=== PATIENT | male | born 1980 | race Caucasian/White ===

== ENCOUNTER 2021-01-08 22:23 | Inpatient (IN) ==
[2021-01-09] MEDS ORDERED: SODIUM CHLORIDE 0.9% 1000ML 1,000 ML IV SCH (00:30)
[2021-01-09 00:39] LABS: Basophils # (auto) 0.02 K/uL (0-0.2); Basophils % (auto) 0.3 %; Eosinophils % (auto) 1.3 %; Hematocrit (blood only) 42.2 % (42-52); Hemoglobin 14.3 g/dL (14.0-18.0); Immature Granulocytes # (auto) 0.02 K/uL (0.00-0.02); Immature Granulocytes % (auto) 0.3 %; Lymphocytes # (auto) 0.89 K/uL (1.2-3.4); Lymphocytes % (auto) 11.2 %; Mean Corpuscular Hemoglobin 30.2 pg (25-34); Mean Corpuscular Hgb Conc 33.9 g/dL (32-36); Mean Corpuscular Volume 89.2 fL (80-100); Mean Platelet Volume 11.4 fL (7.4-10.4); Monocytes # (auto) 0.78 K/uL (0.11-0.59); Monocytes % (auto) 9.8 %; Neutrophils # (auto) 6.13 K/uL (1.4-6.5); Neutrophils % (auto) 77.1 %; Platelet Count 241 K/uL (130-400); RDW Coefficient of Variation 13.6 % (11.5-14.5); RDW Standard Deviation 44.6 fL (36.4-46.3); Red Blood Count 4.73 M/uL (4.7-6.1); White Blood Count 7.94 K/uL (4.8-10.8)
[2021-01-09 00:47] LABS: Albumin Level 4.3 gm/dl (3.4-5.0); BUN Creatinine Ratio 16.3 (10-20); Calcium 9.4 mg/dl (8.5-10.1); Creatinine Clr Calc Pharmacy 64.3 ml/min; Est GFR (African American) 58.5 ml/min; Est GFR (Non-African American) 50.4 ml/min; Potassium 3.9 mmol/L (3.5-5.1)
[2021-01-09] MEDS ORDERED: RAPID SEQUENCE INDUCTION BAG ONE (00:49)
[2021-01-09 00:50] LABS: Albumin Globulin Ratio 1.3 (0.9-2); Bilirubin,Total 0.8 mg/dl (0.2-1); Globulin 3.2 gm/dl (2.5-4.0); Total Protein 7.5 gm/dl (6.4-8.2)
[2021-01-09 00:54] LABS: Acetaminophen < 2 ug/ml (10-30); Salicylate < 1.7 mg/dl (2.8-20)
[2021-01-09] MEDS ORDERED: PROPOFOL IV EMULSION 10 MG/ML 100 ML VIAL IV ONE (01:05)
[2021-01-09] MEDS: propofoL 1,000 MG/100 ML VIAL IV SCH ×3 (01:15→16:07)
--- NOTE | 2021-01-09 01:20 | XRay Report ---
SINGLE VIEW CHEST CLINICAL HISTORY: Hypoxia. FINDINGS: An AP, portable, supine chest radiograph is obtained. No prior studies are available for co mparison at the time of dictation. The left costophrenic angle was excluded. The cardiomediastinal si lhouette is unremarkable. There is platelike atelectasis in the right midlung with mild elevation of the right hemidiaphragm. No airspace consolidation typical for pneumonia or large pleural effusion is identified. No pneumothorax is seen. There is chronic appearing left anterolateral 5th rib fracture. IMPRESSION: No acute cardiopulmonary abnormality. ACT 112: Negative or not required by law. Electronically signed by: Martin Maurer M.D. 01/09/2021 1:18 AM
--- NOTE | 2021-01-09 01:21 | XRay Report ---
SINGLE VIEW CHEST CLINICAL HISTORY: Status post intubation. FINDINGS: An AP, portable, supine chest radiograph is compared to study performed earlier the same da y 01/09/2021. The examination is degraded by portable technique and patient rotation. An endotrachea l tube has been placed. The tip projects just above the misael. The cardiomediastinal silhouette is u nremarkable. Plate like atelectasis is again seen in the right midlung. This is modestly improved fro m previous. No airspace consolidation typical for pneumonia or large pleural effusion is identified. No pneumothorax is seen. The bony thorax is grossly intact. IMPRESSION: 1. An endotracheal tube has been placed as above. 2. Platelike atelectasis in the right midlung has improved from previous. ACT 112: Negative or not required by law. Electronically signed by: Martin Maurer M.D. 01/09/2021 1:20 AM
[2021-01-09] MEDS ORDERED: MIDAZOLAM HCL 1 MG/ML 2ML VIAL ONE (01:24)
--- NOTE | 2021-01-09 01:24 | XRay Report ---
SINGLE VIEW CHEST CLINICAL HISTORY: Endotracheal tube repositioning. FINDINGS: An AP, portable, supine chest radiograph is compared to studies performed earlier the same day 01/09/2021. The examination is degraded by portable technique and patient rotation. An endotrach eal tube has been repositioned. The tip now projects approximately 2.5 cm above the misael. The cardi omediastinal silhouette is unremarkable. Platelike atelectasis is again seen in the right midlung. No airspace consolidation typical for pneumonia or large pleural effusion is identified. No pneumothora x is seen. There is a healed left-sided rib fracture. IMPRESSION: 1. An endotracheal tube has been repositioned as detailed above. 2. No airspace consolidation typical for pneumonia or large pleural effusion is identified. ACT 112: Negative or not required by law. Electronically signed by: Martin Maurer M.D. 01/09/2021 1:22 AM
[2021-01-09] MEDS ORDERED: STAT IV Infusion **Titration per Protocol STA ×3 (01:29→06:03)
[2021-01-09] MEDS ORDERED: MIDAZOLAM HCL 1 MG/ML 2ML VIAL IV STA ×7 (01:35→08:42)
[2021-01-09] MEDS ORDERED: cefTRIAXone SODIUM 1,000 MG/50 ML BAG IV STA (01:39)
[2021-01-09] MEDS ORDERED: metroNIDAZOLE 500 MG/100 ML BAG IV STA (01:39)
[2021-01-09] MEDS: PROPOFOL BOLUS FROM BAG IV PRN ×4 (01:45→09:30)
[2021-01-09 02:09] LABS: iSTAT Arterial Blood Gas HCO3 24 meg/L (19-24); iSTAT Arterial Blood Gas pCO2 52 mmHg (35-46); iSTAT Arterial Blood Gas pH 7.28 (7.35-7.45); iSTAT Arterial Blood Gas pO2 > 420 mmHg (80-95); iSTAT Carbon Dioxide 26 mmol/L (24-31); iSTAT Hematocrit 36 % (42-52); iSTAT Hemoglobin 12.2 g/dl (14.0-18.0); iSTAT Potassium 3.8 mmol/L (3.3-5.0); iSTAT Sodium 145 mmol/L (135-144)
[2021-01-09] MEDS ORDERED: SODIUM CHLORIDE 0.9% 1000ML 500 ML IV ONE (02:28)
[2021-01-09] MEDS ORDERED: fentaNYL citrate 100 MCG/2 ML VIAL IV STA ×4 (02:28→05:16)
[2021-01-09] MEDS ORDERED: SODIUM CHLORIDE 0.9% 500 ML IV SCH (02:30)
[2021-01-09 03:35] LABS: Appearance Urine Clear (Clear); Bacteria Urine Automated Negative (Negative); Blood Urine Negative (Negative); Color Urine Dark Yellow; Epithelial Cell Urine Auto 20-30 /lpf (0-5); Glucose Urine UA Negative (Negative); Ketones Urine 1+ (Negative); Leukocyte Esterase Urine Negative (Negative); Nitrite Urine Negative (Negative); Protein Urine Trace (Negative); RBC Urine Automated 0-4 /hpf (0-4); Specific Gravity Urine 1.035 (1.000-1.030); Urobilinogen Urine Negative (Negative)
[2021-01-09 03:40] LABS: Bilirubin Urine 1+ (Negative)
[2021-01-09 03:51] LABS: Cast Urine Automated >30 /lpf (0-5)
--- NOTE | 2021-01-09 03:52 | History & Physical Report ---
Date of Service January 09, 2021 Assessment & Plan (1) Respiratory failure: Plan: Multifactorial : Oversedation at psychiatric facility secondary to combativeness Aspiration pneumonitis ARF secondary to illness anxiety/mood disorder, suboptimal past tobacco abuse ICU Vent management Clindamycin for aspiration pneumonitis Monitor creatinine response to IVF, renal ultrasound if improvement in kidney function DVT prophylaxis Heparin subcu GI prophylaxis Famotidine while on mechanical ventilation Full code Patient's mother requesting updates from providers. Ms. Ethan Angel, contact #[phone]. Total critical care time was 40 minutes. Text document was generated using [employer] voice recognition software. It may contain grammatical or spelling errors. Kindly contact undersigned for clarification of any documentation item in question. History of Present Illness Chief Complaint: Unresponsiveness as per records Primary Care Provider: Zev Appiah PA-C History obtained from ER provider, family, and records. Unable to obtain history from patient secondary to obtunded state. Medical history significant for anxiety/mood disorder, tremors, past tobacco abuse. Last confinement [facility] behavioral health unit for depression. Patient seen at [facility] ER on 3 occasions this week. First 2 visits (01/01 and 01/07) for anxiety, panic attacks, inability to sleep. Third visit at [facility] yesterday for depression and hallucinations. Patient admits to inhaling illicit substances (duster huffing). Patient not suicidal as per ER provider documentation. Patient subsequently admitted at the [facility]. Outpatient psychiatrist (Dr. Jeffery) recommended switching patient's Abilify to Seroquel inpatient as per records. Patient agitated and combative upon arriving at [facility] as per records. Subsequently given Ativan and Thorazine by medical staff. Patient later noted to have snoring respiration and decreased responsiveness. Subsequent emesis noted. Patient brought to the ER for evaluation. Patient subsequently intubated for combativeness and respiratory distress. Patient noted to have brown orotracheal secretions as per ED staff. IV Ceftriaxone and Flagyl given at the ER. Medical History as above Surgical History : None Family History : Heart disease Personal/Social history : Past tobacco abuse, no EtOH intake Allergies Allergy/AdvReac Type Severity Reaction Status Date / Time Penicillins Allergy Unknown Verified 01/08/21 23:10 Home Medications Medication Instructions Recorded Confirmed Type aripiprazole 10 mg tablet 10 mg PO DAILY 01/08/21 01/08/21 History benztropine 2 mg tablet 2 mg PO DAILY 01/08/21 01/08/21 History hydroxyzine HCl 50 mg tablet 50 mg PO UD 01/08/21 01/08/21 History sildenafil (pulm.hypertension) 20 40 mg PO UD 01/08/21 01/08/21 History mg tablet trazodone 50 mg tablet 50 mg PO UD 01/08/21 01/08/21 History venlafaxine 150 mg tablet,extended 150 mg PO UD 01/08/21 01/08/21 History release 24 hr Past Med/Surg History Social History Smoking Status: Unknown if ever smoked Preferred Language: Sudanese Appointment Coordinator Required: No Current Living Situation Comment: Unable pt intubated and sedated Feels Safe at Home: Yes Review of Systems Review of Systems: Could not be reliably obtained Physical Exam Physical Exam: GENERAL: Sedated, intubated SKIN: Normal color, warm HEENT: [place] palpebral conjunctivae, no ptosis, dry buccal mucosa, ET in place NECK : Supple, no tenderness CHEST : Decreased breath sounds, occasional expiratory wheezes, no tenderness HEART : RRR, no obvious murmurs ABDOMEN: Some distention, nontender EXTREMITIES : No LE swelling/tenderness, no other conspicuous deformities noted NEUROLOGIC : Sedated, no facial asymmetry, gait and stance not assessed Results & Data Results & Data ([facility]) Vital Signs (Past 12 Hours) Vital Signs Temp Pulse Pulse Resp BP BP Pulse Ox 01/09/21 03:15 103 H 97/58 L 96 01/09/21 03:00 97 H 102/64 96 01/09/21 02:45 113 H 20 123/81 97 01/09/21 02:39 99 H 19 98 01/09/21 02:34 99 H 96 01/09/21 02:00 99 H 112/72 100 01/09/21 01:55 20 01/09/21 01:30 112 H 114/72 100 01/09/21 01:05 116 H 13 99 01/09/21 01:00 126 H 93 01/09/21 00:30 138 H 26 H 134/81 90 01/09/21 00:00 133 H 25 H 106/83 91 01/08/21 23:30 126 H 21 114/80 93 01/08/21 23:00 125 H 23 121/83 95 01/08/21 22:35 37.2 C 109 H 116 H 20 91/50 L 91/50 L 94 01/08/21 22:31 107 H 18 91/50 L 95 Laboratory Results Laboratory Results WBC 7.94 K/uL (4.8-10.8) 01/08/21 22:20 RBC 4.73 M/uL (4.7-6.1) 01/08/21 22:20 Hgb 14.3 g/dL (14.0-18.0) 01/08/21 22:20 POC Hgb 12.2 g/dl (14.0-18.0) L 01/09/21 01:54 Hct 42.2 % (42-52) 01/08/21 22:20 POC Hct 36 % (42-52) L 01/09/21 01:54 MCV 89.2 fL (80-100) 01/08/21 22:20 MCH 30.2 pg (25-34) 01/08/21 22:20 MCHC 33.9 g/dL (32-36) 01/08/21 22:20 RDW Std Deviation 44.6 fL (36.4-46.3) 01/08/21 22:20 RDW Coeff of Bradford 13.6 % (11.5-14.5) 01/08/21 22:20 Plt Count 241 K/uL (130-400) 01/08/21 22:20 MPV 11.4 fL (7.4-10.4) H 01/08/21 22:20 Immature Gran % (Auto) 0.3 % 01/08/21 22:20 Neut % (Auto) 77.1 % 01/08/21 22:20 Lymph % (Auto) 11.2 % 01/08/21 22:20 Marathon % (Auto) 9.8 % 01/08/21 22:20 Eos % (Auto) 1.3 % 01/08/21 22:20 Baso % (Auto) 0.3 % 01/08/21 22:20 Neut # (Auto) 6.13 K/uL (1.4-6.5) 01/08/21 22:20 Lymph # (Auto) 0.89 K/uL (1.2-3.4) L 01/08/21 22:20 Marathon # (Auto) 0.78 K/uL (0.11-0.59) H 01/08/21 22:20 Eos # (Auto) 0.10 K/uL (0-0.5) 01/08/21 22:20 Baso # (Auto) 0.02 K/uL (0-0.2) 01/08/21 22:20 Immature Gran # (Auto) 0.02 K/uL (0.00-0.02) 01/08/21 22:20 POC pH 7.28 (7.35-7.45) L 01/09/21 01:54 POC pCO2 52 mmHg (35-46) H 01/09/21 01:54 POC pO2 > 420 mmHg (80-95) H 01/09/21 01:54 POC HCO3 24 timbo/L (19-24) 01/09/21 01:54 POC Total CO2 26 mmol/L (24-31) 01/09/21 01:54 POC Base Excess -2.0 timbo/L (-9-1.8) 01/09/21 01:54 POC ABG O2 Sat 100.0 % (90-95) H 01/09/21 01:54 POC Sodium 145 mmol/L (135-144) H 01/09/21 01:54 Sodium 140 mmol/L (136-145) 01/08/21 22:20 POC Potassium 3.8 mmol/L (3.3-5.0) 01/09/21 01:54 Potassium 3.9 mmol/L (3.5-5.1) 01/08/21 22:20 Chloride 111 mmol/L (98-107) H 01/08/21 22:20 Carbon Dioxide 23 mmol/L (21-32) 01/08/21 22:20 Anion Gap 6.0 (3-11) 01/08/21 22:20 BUN 27 mg/dl (7-18) H 01/08/21 22:20 Creatinine 1.66 mg/dl (0.6-1.4) H 01/08/21 22:20 Est Cr Clr Drug Dosing 64.3 ml/min 01/08/21 22:20 Est GFR ( Amer) 58.5 ml/min 01/08/21 22:20 Est GFR (Non-Af Amer) 50.4 ml/min 01/08/21 22:20 BUN/Creatinine Ratio 16.3 (10-20) 01/08/21 22:20 Glucose 102 mg/dl (70-99) H 01/08/21 22:20 Calcium 9.4 mg/dl (8.5-10.1) 01/08/21 22:20 Total Bilirubin 0.8 mg/dl (0.2-1) 01/08/21 22:20 AST 26 U/L (15-37) 01/08/21 22:20 ALT 26 U/L (12-78) 01/08/21 22:20 Alkaline Phosphatase 100 U/L (45-117) 01/08/21 22:20 Total Protein 7.5 gm/dl (6.4-8.2) 01/08/21 22:20 Albumin 4.3 gm/dl (3.4-5.0) 01/08/21 22:20 Globulin 3.2 gm/dl (2.5-4.0) 01/08/21 22:20 Albumin/Globulin Ratio 1.3 (0.9-2) 01/08/21 22:20 Urine Color Dark Yellow 01/09/21 03:11 Urine Appearance Clear (Clear) 01/09/21 03:11 Urine pH 5.0 (4.5-7.5) 01/09/21 03:11 Ur Specific Luckey 1.035 (1.000-1.030) H 01/09/21 03:11 Urine Protein Trace (Negative) H 01/09/21 03:11 Urine Glucose (UA) Negative (Negative) 01/09/21 03:11 Urine Ketones 1+ (Negative) H 01/09/21 03:11 Urine Blood Negative (Negative) 01/09/21 03:11 Urine Nitrite Negative (Negative) 01/09/21 03:11 Urine Bilirubin 1+ (Negative) H 01/09/21 03:11 Urine Urobilinogen Negative (Negative) 01/09/21 03:11 Ur Leukocyte Esterase Negative (Negative) 01/09/21 03:11 Urine WBC (Auto) 1-5 /hpf (0-5) 01/09/21 03:11 Urine RBC (Auto) 0-4 /hpf (0-4) 01/09/21 03:11 U Hyaline Cast (Auto) >30 /lpf (0-5) H 01/09/21 03:11 U Epithel Cells (Auto) 20-30 /lpf (0-5) H 01/09/21 03:11 Urine Bacteria (Auto) Negative (Negative) 01/09/21 03:11 Salicylates < 1.7 mg/dl (2.8-20) L 01/08/21 22:20 Acetaminophen < 2 ug/ml (10-30) L 01/08/21 22:20 Ethyl Alcohol mg/dL < 3.0 mg/dl (0-3) 01/09/21 00:47 COVID-19 Eval Order Covid19 at [facility] 01/09/21 03:11 Impressions Chest X-Ray 01/09/21 01:14 SINGLE VIEW CHEST CLINICAL HISTORY: Endotracheal tube repositioning. FINDINGS: An AP, portable, supine chest radiograph is compared to studies performed earlier the same day 01/09/2021. The examination is degraded by portable technique and patient rotation. An endotracheal tube has been repositioned. The tip now projects approximately 2.5 cm above the misael. The cardiomediastinal silhouette is unremarkable. Platelike atelectasis is again seen in the right midlung. No airspace consolidation typical for pneumonia or large pleural effusion is identified. No pneumothorax is seen. There is a healed left-sided rib fracture. IMPRESSION: 1. An endotracheal tube has been repositioned as detailed above. 2. No airspace consolidation typical for pneumonia or large pleural effusion is identified. ACT 112: Negative or not required by law. Electronically signed by: Martin Maurer M.D. 01/09/2021 1:22 AM Diagnostic Findings EKG as per my interpretation : Rate 115, sinus tachycardia, LAD, LAFB, no ischemia
[2021-01-09] MEDS ORDERED: CLINDAMYCIN 600 MG in DEXTROSE 5% 50 ML IV STA (03:56)
[2021-01-09] MEDS ORDERED: LACTATED RINGER'S 1,000 ML IV STA (03:56)
[2021-01-09] MEDS ORDERED: DEXMEDETOMIDINE HCL 200 MCG in SODIUM CHLORIDE 0.9% 48 ML IV SCH (04:00)
[2021-01-09 04:02] LABS: Amphetamines+Metham, Urine Neg (Neg); Barbiturates, Urine Neg (Neg); Benzodiazepine, Urine Pos (Neg); Cocaine, Urine Neg (Neg); MDMA (Ecstacy), Urine Neg (Neg); Methadone, Urine Neg (Neg); Opiate, Urine Neg (Neg); Phencyclidine, Urine Neg (Neg)
[2021-01-09 04:10] LABS: Magnesium 2.5 mg/dl (1.8-2.4)
[2021-01-09 04:20] LABS: Thyroid Stimulating Hormone 3.77 uIu/ml (0.300-4.500)
--- NOTE | 2021-01-09 04:54 | Critical Care Consultation ---
Date of Consultation January 09, 2021 Assessment & Plan (1) Aspiration into airway: Reason Critically Ill: 40-year-old male presents to the ICU mechanically ventilated for acute hypoxic respiratory failure following what is likely an aspiration event which occurred in inpatient psych. Neuro - Agitation/encephalopathypatient was found to be agitated at the rachel and did receive Ativan and Thorazine -Currently mechanically ventilated and sedated with fentanyl drip, Precedex -Ammonia, BUN, and LFTs within normal limits -UDS thus far only positive for benzos, follow-up final result. EtOH negative. 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 -CT head negative for acute intracranial process -Start thiamine and folic acid daily -Continue Effexor and aripiprazole when appropriate -Consult psych once patient stable Cardiac - Hypotensionlikely sedation related however cannot rule out possible distributive shock following aspiration event -Maintain maps greater than 65 with phenylephrine infusion -Hold antihypertensives Respiratory - Acute hypoxic respiratory failurelikely in the setting of aspiration pneumonitis as patient was witnessed vomiting and suddenly became in respiratory distress -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 Continue with supportive care -Currently mechanically ventilated, AC VC 22/450/10/60 percent, follow-up ABG in a.m. -Sputum culture/BAL pending -See ID below -Continuous end-tidal CO2 and oxygen saturation monitoring -Wean vent as tolerated GI - NG tube to low intermittent suction IV famotidine twice daily RENAL/LYTES - TRAVIS?Unsure of baseline creatinine, currently presents with creatinine 1.6 -Continue with IV fluid resuscitation as patient appears to be hypovolemic -Due to both greater than 65 -Trend BMP -Avoid nephrotoxins renally adjust medications - Foleystrict I's and Os ENDO - No history of diabetes or thyroid disease ICU hyperglycemic protocol TSH within normal limits HEME - H&H stable, monitor routine CBCs ID - Pneumonia?No leukocytosis, pro Augusto negative, lactate negative. Now febrile. Chest x-ray with right middle and lower lobe infiltrates suspicious for aspiration. Suspect this is likely aspiration pneumonitis given history -Blood cultures and sputum culture pending -UA unremarkable for infectious process -Received ceftriaxone and Flagyl in the ED, now started on clindamycin LINES/IV ACCESS - Peripheral IVs DVT PROPHYLAXIS - SCDs, heparin I have personally spent 45 minutes of critical care time in the direct management of this patient. This is a life/limb threatening event. This includes time spent evaluating patient, direct bedside care, chart review, placing orders, interpretation of diagnostic studies, discussion with consultants, patient, and family members, as well as other required patient management activities. This time is exclusive of all separately billable procedures, and teaching time and separate from and in addition to any other critical care service time. Thank you for allowing us to participate in the care of this patient. Please refer to my attending physician's documentation for any further recommendations. (2) Encephalopathy acute: (3) TRAVIS (acute kidney injury): (4) Acute respiratory failure with hypoxia: (5) Anxiety and depression: History of Present Illness History of Present Illness Patient is a 40-year-old male with a past medical history of anxiety/depression is currently on Effexor, Abilify who has recently presented to [facility] multiple times over the past few weeks with increasing complaints of anxiety and depression. 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 He was admitted to the [facility] yesterday and was reported to be pacing the halls and very agitated. He received p.o. Thorazine and Ativan at that time, and vomited. Shortly after he became in respiratory distress and was tr ansferred to the emergency department. In the emergency department patient was noted to be combative and in significant respiratory distress and was emergently intubated. He was taken for CT head Noncon which was negative for acute intracranial findings. UDS pending result, salicylates and acetaminophen negative, EtOH negative. Lactate and procalcitonin unremarkable and no leukocytosis however patient did spike fever on arrival to the ICU. He was also noted to have copious dark secretions from the ET tube. Chest x-ray with possible right middle/lower lobe infiltrate. Patient now presents to the ICU mechanically ventilated for further management at this time. Allergies Allergy/AdvReac Type Severity Reaction Status Date / Time Penicillins Allergy Unknown Verified 01/08/21 23:10 Home Medications Medication Instructions Recorded Confirmed Type aripiprazole 10 mg tablet 10 mg PO DAILY 01/08/21 01/08/21 History benztropine 2 mg tablet 2 mg PO DAILY 01/08/21 01/08/21 History hydroxyzine HCl 50 mg tablet 50 mg PO UD 01/08/21 01/08/21 History sildenafil (pulm.hypertension) 20 40 mg PO UD 01/08/21 01/08/21 History mg tablet trazodone 50 mg tablet 50 mg PO UD 01/08/21 01/08/21 History venlafaxine 150 mg tablet,extended 150 mg PO UD 01/08/21 01/08/21 History release 24 hr Patient History Social History Smoking Status: Unknown if ever smoked Preferred Language: Turkish Commercial Lending Relationship Manager Required: No Current Living Situation Comment: Unable pt intubated and sedated Feels Safe at Home: Yes Review of Systems Review of Systems: Unobtainable due to cognitive status and Unobtainable due to endotracheal tube Physical Exam Constitutional: + disheveled and + mechanically ventilated Eyes: PERRL, conjunctivae normal, anicteric sclerae ENMT: external ear and nose normal, oropharynx normal Neck: trachea midline, no thyromegaly Respiratory: symmetric chest movement Auscultation: + rales (Bilaterally in all lung spivey) Copious dark secretion Cardiovascular: Rate/Rhythm: regular rate, regular rhythm and + tachycardic Heart Sounds: normal S1 and normal S2; no murmur Extremities: normal capillary refill Gastrointestinal (Abdomen): normal bowel sounds, soft, nontender, no hepatosplenomegaly Musculoskeletal: no cyanosis or clubbing, extremities motor strength 5/5 Skin: no rashes, warm and dry Neurologic: Unable to assess due to ET tube/sedation Psychiatric: Unable to assess due to ET tube/sedation Genitourinary: Indwelling Ayala catheter present Results & Data Results & Data ([facility]) Vital Signs (Past 12 Hours) Vital Signs Temp Pulse Pulse Resp BP BP Pulse Ox 01/09/21 04:30 108 H 106/65 98 01/09/21 04:15 119 H 115/64 95 01/09/21 04:09 22 01/09/21 04:00 119 H 131/72 98 01/09/21 03:46 121 H 153/92 H 96 01/09/21 03:30 108 H 124/76 97 01/09/21 03:15 103 H 97/58 L 96 01/09/21 03:00 97 H 102/64 96 01/09/21 02:45 113 H 20 123/81 97 01/09/21 02:39 99 H 19 98 01/09/21 02:34 99 H 96 01/09/21 02:00 99 H 112/72 100 01/09/21 01:55 20 01/09/21 01:30 112 H 114/72 100 01/09/21 01:05 116 H 13 99 01/09/21 01:00 126 H 93 01/09/21 00:30 138 H 26 H 134/81 90 01/09/21 00:00 133 H 25 H 106/83 91 01/08/21 23:30 126 H 21 114/80 93 01/08/21 23:00 125 H 23 121/83 95 01/08/21 22:35 37.2 C 109 H 116 H 20 91/50 L 91/50 L 94 01/08/21 22:31 107 H 18 91/50 L 95 Diagnostic Findings Chest X-Ray 01/09/21 01:14 SINGLE VIEW CHEST CLINICAL HISTORY: Endotracheal tube repositioning. FINDINGS: An AP, portable, supine chest radiograph is compared to studies performed earlier the same day 01/09/2021. The examination is degraded by portable technique and patient rotation. An endotracheal tube has been repositioned. The tip now projects approximately 2.5 cm above the misael. The cardiomediastinal silhouette is unremarkable. Platelike atelectasis is again seen in the right midlung. No airspace consolidation typical for pneumonia or large pleural effusion is identified. No pneumothorax is seen. There is a healed left-sided rib fracture. IMPRESSION: 1. An endotracheal tube has been repositioned as detailed above. 2. No airspace consolidation typical for pneumonia or large pleural effusion is identified. Coding Level of Care Code Critical Care 1st 30-74 mins Diagnoses Aspiration into airway T17.908A Encephalopathy acute G93.40 TRAVIS (acute kidney injury) N17.9 Acute respiratory failure with hypoxia J96.01 Anxiety and depression F41.9; F32.9
[2021-01-09 05:00] LABS: Base Excess ABG -3.7 mEq/L (-9-1.8); HCO3 ABG 22 mmol/L (19-24); Oxygen Saturation ABG 95.5 % (90-95); PCO2 ABG 40 mmHg (35-46); PO2 ABG 78 mmHg (80-95); pH ABG 7.35 (7.35-7.45)
[2021-01-09 05:01] LABS: Allen Test Pos (Pos)
[2021-01-09] MEDS: fentaNYL DRIP 1,250 MCG/250 ML BAG IV SCH ×2 (05:13→15:29)
[2021-01-09] MEDS ORDERED: PROMETHAZINE HCL 12.5 MG in SODIUM CHLORIDE 0.9% 50 ML IV PRN (05:26)
[2021-01-09] MEDS ORDERED: ACETAMINOPHEN 1000 MG/100 ML IV IV PRN (05:26)
[2021-01-09] MEDS ORDERED: ICU PROTOCOL FOR HYPERGLYCEMIA PRN (05:26)
[2021-01-09 05:41] LABS: iSTAT Allen Test Pass; iSTAT Art Bld Gas pCO2 Correct 41 mmHg (35-46); iSTAT Art Bld Gas pH Corrected 7.319 (7.35-7.45); iSTAT Arterial Blood Gas HCO3 21 meg/L (19-24); iSTAT Arterial Blood Gas pCO2 41 mmHg (35-46); iSTAT Arterial Blood Gas pH 7.32 (7.35-7.45); iSTAT Arterial Blood Gas pO2 70 mmHg (80-95); iSTAT Arterial Blood Gas pO2 C 70; iSTAT Carbon Dioxide 22 mmol/L (24-31); iSTAT FiO2 90 %; iSTAT Hematocrit 36 % (42-52); iSTAT Hemoglobin 12.2 g/dl (14.0-18.0); iSTAT Site R Brachial; iSTAT Sodium 146 mmol/L (135-144)
[2021-01-09] MEDS: DEXMEDETOMIDINE HCL 400 MCG in 0.9 % SODIUM CHLORIDE 96 ML IV SCH ×7 (05:42→22:33)
[2021-01-09] MEDS: HEPARIN SOD 5,000 UNIT/0.5 ML VIAL SQ SCH ×3 (05:47→20:59)
[2021-01-09] MEDS: LACTATED RINGER'S 1,000 ML IV SCH ×2 (05:51→15:51)
[2021-01-09] MEDS: PHENYLEPHRINE HCL 20 MG in DEXTROSE 5% 500 ML IV SCH ×5 (06:14→16:06)
[2021-01-09 06:31] LABS: Eosinophils # (auto) 0.02 K/uL (0-0.5); Eosinophils % (auto) 0.4 %; Hematocrit (blood only) 37.9 % (42-52); Hemoglobin 12.8 g/dL (14.0-18.0); Immature Granulocytes # (auto) 0.01 K/uL (0.00-0.02); Immature Granulocytes % (auto) 0.2 %; Lymphocytes # (auto) 0.38 K/uL (1.2-3.4); Lymphocytes % (auto) 6.8 %; Mean Corpuscular Hemoglobin 30.1 pg (25-34); Mean Corpuscular Hgb Conc 33.8 g/dL (32-36); Mean Corpuscular Volume 89.2 fL (80-100); Mean Platelet Volume 10.2 fL (7.4-10.4); Monocytes # (auto) 0.08 K/uL (0.11-0.59); Monocytes % (auto) 1.4 %; Neutrophils # (auto) 5.08 K/uL (1.4-6.5); Neutrophils % (auto) 91.2 %; Platelet Count 185 K/uL (130-400); RDW Coefficient of Variation 13.8 % (11.5-14.5); Red Blood Count 4.25 M/uL (4.7-6.1); White Blood Count 5.57 K/uL (4.8-10.8)
[2021-01-09 06:49] LABS: INR 1.2 (0.9-1.1); Partial Thromboplastin Ratio 0.9; Partial Thromboplastin Time 23.7 Seconds (21.0-31.0); Prothrombin Time 11.6 Seconds (9.0-12.0)
[2021-01-09 07:11] LABS: Calcium 7.9 mg/dl (8.5-10.1); Creatinine Clr Calc Pharmacy 85.4 ml/min; Est GFR (African American) 82.4 ml/min; Est GFR (Non-African American) 71.1 ml/min; Magnesium 2.1 mg/dl (1.8-2.4); Phosphorus 1.9 mg/dl (2.5-4.9)
--- NOTE | 2021-01-09 07:50 | CT Scan Report ---
CT head/brain wo con CLINICAL HISTORY: 40 years-old Male with altered ms. Acutely altered mental status with drug overdos e TECHNIQUE: Multiple axial CT images of the head were obtained without contrast. A dose lowering tech nique was utilized adhering to the principles of ALARA. CT DOSE: 691.05 mGy.cm COMPARISON: None. FINDINGS: No acute intracranial hemorrhage, midline shift, intracranial mass, hydrocephalus, territorial ischem ia or abnormal extra-axial collection. The calvarium is intact. The paranasal sinuses, mastoid air cells, and middle ear cavities are clear . IMPRESSION: No acute intracranial abnormality. ACT 112: Negative or not required by law. The above report was generated using voice recognition software. It may contain grammatical, syntax o r spelling errors. Electronically signed by: Khoa Salinas M.D. 01/09/2021 7:48 AM
[2021-01-09] MEDS ORDERED: MIDAZOLAM HCL 5 MG/ML 1 ML VIAL ONE (08:14)
[2021-01-09] MEDS: FAMOTIDINE 20 MG in SYRINGE 3 ML IV SCH ×2 (08:24→20:58)
[2021-01-09] MEDS ORDERED: CLINDAMYCIN CONSULT ACTIVE PRN (09:00)
--- NOTE | 2021-01-09 09:37 | Emergency Department Note ---
Impression & Plan Respiratory failure, Hypoxia, Acute alteration in mental [facility] Provider Note NAME: DEAN YORK AGE: 40 SEX: M ARRIVES VIA: Ambulance INFORMANT: EMS ED PROVIDER(S): Evelyn Jennings DO CHIEF COMPLAINT: Altered mental status PLAN: Disposition: [facility] to [facility] Condition: Critical MEDICAL DECISION MAKING: This is. 40-year-old male brought to the emergency department from the [facility] with an altered mental status. The patient had recently arrived to their facility for inpatient psychiatric care from [facility]. Upon his arrival according to EMS and staff from the [facility], the patient seemed delusional with bizarre behavior. He was running around there locked unit. On their intake vital signs, the patient was hypoxic. He required sedation. They administered oral Ativan and Thorazine. Apparently the patient became sedate and began to vomit. He became more hypoxic and they called EMS. Upon EMS arrival there he was still vomiting and was transported here. Upon my evaluation here, the patient made incomprehensible sounds and was persistently hypoxic despite being on an oxygen mask. He continued to dry heave and would not remain in the prone position I was concerned for protection of his airway. Chest x-ray showed atelectasis versus aspiration in the right midlung. I began to treat him as an aspiration pneumonia and decided to secure his airway with intubation. RSI was performed and the patient was treated with IV antibiotics and IV crystalloid. The case was discussed with the [facility] in the ICU. Triage Nursing notes reviewed and agree with them. Additional history obtained from staff from the [facility] and we obtain records from [facility] Vital Signs: reviewed and remarkable for tachycardia and tachypnea Differential diagnosis: Drug abuse, hypoglycemia, aspiration pneumonia, sepsis intracranial process, ER treatment provided: IV normal saline bolus-1.5 L RSI-IV succinylcholine and IV etomidate IV propofol drip Multiple doses of IV fentanyl and Versed for sedation Endotracheal intubation IV Rocephin IV Flagyl Diagnostics interpreted by me: ECG: Sinus tachycardia at [address] segment elevation or signs of ischemia. There is no ectopy. QTC is 476 ms. Cardiac Monitoring: Sinus tachycardia at 106 Laboratory studies: See below Imaging studies: As per stat rad CT head: Normal head CT Portable chest x-ray: As per my interpretation Atelectasis in the right midlung versus aspiration pneumonia Repeat chest x-ray: Endotracheal tube at the misael Repeat chest x-ray: Endotracheal tube pulled back 2 cm above the misael HPI: 40/M arrives for evaluation of altered mental status. The patient was transferred to the [facility] today for inpatient psychiatric care. 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 The patient arrived to their facility in a delusional state with some hypoxia. He was sedated with 4 mg of oral Ativan and 100 mg of oral Thorazine. He became increasingly sedated and then began to vomit. EMS was called and he was transported here. The patient arrived in our department hypoxic with an altered mental status. ROS: Unobtainable due to an altered mental status PAST MEDICAL HISTORY:Depression/anxiety PAST SURGICAL HISTORY:Obtainable due to altered mental status FAMILY HISTORY:Unobtainable due to altered mental status SOCIAL HISTORY:Abuses dusting agents-- HOME MEDICATIONS:See list ALLERGIES:Penicillin VITALS:See Below PHYSICAL EXAMINATION: HEENT: Head - normocephalic and atraumatic. Pupils are 2 mm equal, round, and reactive to light. Extraocular eye muscles are intact, and sclera are anicteric. Nose - moist nasal mucosa without discharge. Mouth - moist buccal mucosa. Oropharynx is nonerythematous and there is no tonsillar exudate or edema noted. Neck: Supple; no nuchal rigidity or cervical lymphadenopathy Heart: Tachycardic rate and regular rhythm. There is a normal S1 and S2 with no murmurs, clicks, or gallops appreciated. Lungs: Clear to auscultation bilaterally with no wheezes, rales, or rhonchi. Abdomen: Soft, completely nontender, nondistended, with good bowel sounds. There are no palpable pulsatile masses or hepatosplenomegaly. There is no guarding, rigidity, or rebound noted. Extremities: No evidence of cyanosis, clubbing, or edema. There are easily palpable peripheral pulses. Skin: warm and dry with good turgor and no rashes. Neuro: The patient would only withdrawal to painful stimuli. ED COURSE: Times/Reassessments: 0015: Patient was evaluated in room B 12. A complete history and physical was performed. Laboratory studies were drawn as above. An order was placed for continuous cardiac monitoring. The patient was in a sinus tachycardia at a rate of 106. The patient was bolused with 1 L of IV normal saline solution. A twelve-lead EKG was obtained. Laboratory studies were drawn as above. Patient's oxygen requirement increased from nasal cannula to an oxygen mask. The decision was made to move the patient from room B 12 to B1. We have decided to perform RSI to secure the patient's airway. Endotracheal Intubation Indication respiratory failure. The patient was on 100% oxygen via oxygen mask prior to the procedure. Suction, airway equipment, RSI drugs, respiratory equipment, and appropriate personnel were prepared prior to the initiation of the procedure. A time out was taken. Induction was performed with 150 mg of IV succinylcholine and 30 mg of IV etomidate. After observing the clinical benefit of the medications, the airway was easily visualized utilizing the glide scope. An 8.0 size ETT tube was placed atraumatically to 24 cm using standard technique. The cuff inflated without signs of malfunction. There were bilateral breath sounds, positive colormetric change, no gastric sounds, a good capnography waveform, and post procedure pulse oximetry was 98%. Post intubation sedation was administered using propofol drip. There were no complications. A post intubation chest x-ray was performed and the endotracheal tube was at the misael. The tube was pulled back by 2 cm. The patient would intermittently require sedation with IV Versed and fentanyl. A Covid swab was obtained. A Ayala catheter was placed. An NG tube was placed. Patient was given IV Rocephin and IV Flagyl for possible aspiration pneumonia. Patient was given an additional 500 cc bolus of IV normal saline solution. Patient went for CT scan of the brain because of no significant reliable history of the patient's altered mental status. This was read as unremarkable. I discussed the case with the ICU team as well as the [facility] and they will evaluate for further management. The patient remained hemodynamically stable while in the emergency department. I have personally spent greater than 65 minutes of critical care time in the direct management of this patient. This includes bedside care, interpretation of diagnostic studies, and testing, discussion with consultants, patient, and family members, and other required patient management activities. This 65 minutes is in excess of all separately billable procedures. 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 Current Living Situation Comment: Unable pt intubated and sedated Feels Safe at Home: Yes Allergies Allergies Allergy/AdvReac Type Severity Reaction Status Date / Time Penicillins Allergy Unknown Verified 01/08/21 23:10 Home Meds Home Medications Medication Instructions Recorded Confirmed aripiprazole 10 mg tablet 10 mg PO DAILY 01/08/21 01/08/21 benztropine 2 mg tablet 2 mg PO DAILY 01/08/21 01/08/21 hydroxyzine HCl 50 mg tablet 50 mg PO UD 01/08/21 01/08/21 sildenafil (pulm.hypertension) 20 40 mg PO UD 01/08/21 01/08/21 mg tablet trazodone 50 mg tablet 50 mg PO UD 01/08/21 01/08/21 venlafaxine 150 mg tablet,extended 150 mg PO UD 01/08/21 01/08/21 release 24 hr Results & Data (ED) Vital Signs Vital Signs - 24 hr 01/08/21 22:31 01/08/21 22:35 01/08/21 23:00 Temperature 37.2 C Temperature Source Oral Pulse Rate 107 H 109 H 125 H Pulse Rate [Apical] 116 H Pulse Rate from SpO2 Sensor 106 H 126 H Pulse Rhythm Respiratory Rate 18 20 23 Respiratory Effort / Characteristics Non-Labored Respiratory Depth Normal Respiratory Pattern Regular Blood Pressure 91/50 L 91/50 L 121/83 Blood Pressure [Right Arm] 91/50 L Blood Pressure Mean 63 63 95 Blood Pressure Mean [Right Arm] 63 Pulse Oximetry 95 94 95 Oxygen Delivery Method Nasal Cannula Oxygen Flow Rate 3 Fraction of Inspired Oxygen Sepsis Recent Fever Within 48 Hours No Sepsis New/Unexplained Change in Mental Status No Sepsis Action Taken by Nursing No Action Required End-Tidal CO2 Oxygen Flow Rate - Titration 3 Pulse Oximetry Post Tiitration 94 01/08/21 23:30 01/09/21 00:00 01/09/21 00:30 Temperature Temperature Source Pulse Rate 126 H 133 H 138 H Pulse Rate [Apical] Pulse Rate from SpO2 Sensor 127 H 133 H 137 H Pulse Rhythm Respiratory Rate 21 25 H 26 H Respiratory Effort / Characteristics Respiratory Depth Respiratory Pattern Blood Pressure 114/80 106/83 134/81 Blood Pressure [Right Arm] Blood Pressure Mean 91 90 98 Blood Pressure Mean [Right Arm] Pulse Oximetry 93 91 90 Oxygen Delivery Method Oxygen Flow Rate 3 6 Fraction of Inspired Oxygen Sepsis Recent Fever Within 48 Hours Sepsis New/Unexplained Change in Mental Status Sepsis Action Taken by Nursing End-Tidal CO2 Oxygen Flow Rate - Titration Pulse Oximetry Post Tiitration 01/09/21 01:00 01/09/21 01:05 01/09/21 01:30 Temperature Temperature Source Pulse Rate 126 H 116 H 112 H Pulse Rate [Apical] Pulse Rate from SpO2 Sensor 127 H 112 H Pulse Rhythm Respiratory Rate 13 Respiratory Effort / Characteristics Respiratory Depth Respiratory Pattern Blood Pressure 114/72 Blood Pressure [Right Arm] Blood Pressure Mean 86 Blood Pressure Mean [Right Arm] Pulse Oximetry 93 99 100 Oxygen Delivery Method Oxygen Flow Rate Fraction of Inspired Oxygen 100 Sepsis Recent Fever Within 48 Hours Sepsis New/Unexplained Change in Mental Status Sepsis Action Taken by Nursing End-Tidal CO2 35 45 31 Oxygen Flow Rate - Titration Pulse Oximetry Post Tiitration 01/09/21 01:55 01/09/21 02:00 01/09/21 02:34 Temperature Temperature Source Pulse Rate 99 H 99 H Pulse Rate [Apical] Pulse Rate from SpO2 Sensor 98 H 99 H Pulse Rhythm Respiratory Rate 20 Respiratory Effort / Characteristics Respiratory Depth Respiratory Pattern Blood Pressure 112/72 Blood Pressure [Right Arm] Blood Pressure Mean 85 Blood Pressure Mean [Right Arm] Pulse Oximetry 100 96 Oxygen Delivery Method Oxygen Flow Rate Fraction of Inspired Oxygen 50 Sepsis Recent Fever Within 48 Hours Sepsis New/Unexplained Change in Mental Status Sepsis Action Taken by Nursing End-Tidal CO2 33 36 Oxygen Flow Rate - Titration Pulse Oximetry Post Tiitration 01/09/21 02:39 01/09/21 02:45 01/09/21 03:00 Temperature Temperature Source Pulse Rate 99 H 113 H 97 H Pulse Rate [Apical] Pulse Rate from SpO2 Sensor 113 H 97 H Pulse Rhythm Regular Respiratory Rate 19 20 Respiratory Effort / Characteristics Respiratory Depth Respiratory Pattern Blood Pressure 123/81 102/64 Blood Pressure [Right Arm] Blood Pressure Mean 95 76 Blood Pressure Mean [Right Arm] Pulse Oximetry 98 97 96 Oxygen Delivery Method Room Air Oxygen Flow Rate Fraction of Inspired Oxygen 50 Sepsis Recent Fever Within 48 Hours Sepsis New/Unexplained Change in Mental Status Sepsis Action Taken by Nursing End-Tidal CO2 36 38 Oxygen Flow Rate - Titration Pulse Oximetry Post Tiitration 01/09/21 03:15 01/09/21 03:30 01/09/21 03:46 Temperature Temperature Source Pulse Rate 103 H 108 H 121 H Pulse Rate [Apical] Pulse Rate from SpO2 Sensor 104 H 108 H 121 H Pulse Rhythm Respiratory Rate Respiratory Effort / Characteristics Respiratory Depth Respiratory Pattern Blood Pressure 97/58 L 124/76 153/92 H Blood Pressure [Right Arm] Blood Pressure Mean 71 92 112 Blood Pressure Mean [Right Arm] Pulse Oximetry 96 97 96 Oxygen Delivery Method Oxygen Flow Rate Fraction of Inspired Oxygen Sepsis Recent Fever Within 48 Hours Sepsis New/Unexplained Change in Mental Status Sepsis Action Taken by Nursing End-Tidal CO2 39 39 48 Oxygen Flow Rate - Titration Pulse Oximetry Post Tiitration 01/09/21 04:00 01/09/21 04:09 01/09/21 04:15 Temperature Temperature Source Pulse Rate 119 H 119 H Pulse Rate [Apical] Pulse Rate from SpO2 Sensor 119 H 119 H Pulse Rhythm Respiratory Rate 22 Respiratory Effort / Characteristics Respiratory Depth Respiratory Pattern Blood Pressure 131/72 115/64 Blood Pressure [Right Arm] Blood Pressure Mean 91 81 Blood Pressure Mean [Right Arm] Pulse Oximetry 98 95 Oxygen Delivery Method Oxygen Flow Rate Fraction of Inspired Oxygen 40 Sepsis Recent Fever Within 48 Hours Sepsis New/Unexplained Change in Mental Status Sepsis Action Taken by Nursing End-Tidal CO2 43 43 Oxygen Flow Rate - Titration Pulse Oximetry Post Tiitration Laboratory Data Result diagrams: 01/09/21 05:57 01/09/21 05:57 Lab Results 01/08/21 01/08/21 01/08/21 Range/Units 22:20 22:20 22:20 WBC 7.94 (4.8-10.8) K/uL RBC 4.73 (4.7-6.1) M/uL Hgb 14.3 (14.0-18.0) g/dL POC Hgb (14.0-18.0) g/dl Hct 42.2 (42-52) % POC Hct (42-52) % MCV 89.2 (80-100) fL MCH 30.2 (25-34) pg MCHC 33.9 (32-36) g/dL RDW Std Deviation 44.6 (36.4-46.3) fL RDW Coeff of Bradford 13.6 (11.5-14.5) % Plt Count 241 (130-400) K/uL MPV 11.4 H (7.4-10.4) fL Immature Gran % (Auto) 0.3 % Neut % (Auto) 77.1 % Lymph % (Auto) 11.2 % Bond % (Auto) 9.8 % Eos % (Auto) 1.3 % Baso % (Auto) 0.3 % Neut # (Auto) 6.13 (1.4-6.5) K/uL Lymph # (Auto) 0.89 L (1.2-3.4) K/uL Bond # (Auto) 0.78 H (0.11-0.59) K/uL Eos # (Auto) 0.10 (0-0.5) K/uL Baso # (Auto) 0.02 (0-0.2) K/uL Immature Gran # (Auto) 0.02 (0.00-0.02) K/uL POC pH (7.35-7.45) POC pCO2 (35-46) mmHg POC pO2 (80-95) mmHg POC HCO3 (19-24) timbo/L POC Total CO2 (24-31) mmol/L POC Base Excess (-9-1.8) timbo/L POC ABG O2 Sat (90-95) % POC Sodium (135-144) mmol/L Sodium 140 (136-145) mmol/L POC Potassium (3.3-5.0) mmol/L Potassium 3.9 (3.5-5.1) mmol/L Chloride 111 H (98-107) mmol/L Carbon Dioxide 23 (21-32) mmol/L Anion Gap 6.0 (3-11) BUN 27 H (7-18) mg/dl Creatinine 1.66 H (0.6-1.4) mg/dl Est Cr Clr Drug Dosing 64.3 ml/min Est GFR ( Amer) 58.5 ml/min Est GFR (Non-Af Amer) 50.4 ml/min BUN/Creatinine Ratio 16.3 (10-20) Glucose 102 H (70-99) mg/dl Calcium 9.4 (8.5-10.1) mg/dl Magnesium 2.5 H (1.8-2.4) mg/dl Total Bilirubin 0.8 (0.2-1) mg/dl AST 26 (15-37) U/L ALT 26 (12-78) U/L Alkaline Phosphatase 100 (45-117) U/L Total Creatine Kinase 309 H (39-308) U/L Total Protein 7.5 (6.4-8.2) gm/dl Albumin 4.3 (3.4-5.0) gm/dl Globulin 3.2 (2.5-4.0) gm/dl Albumin/Globulin Ratio 1.3 (0.9-2) Procalcitonin (0-0.5) ng/ml TSH 3.770 (0.300-4.500) uIu/ml Urine Color Urine Appearance (Clear) Urine pH (4.5-7.5) Ur Specific [place] (1.000-1.030) Urine Protein (Negative) Urine Glucose (UA) (Negative) Urine Ketones (Negative) Urine Blood (Negative) Urine Nitrite (Negative) Urine Bilirubin (Negative) Urine Urobilinogen (Negative) Ur Leukocyte Esterase (Negative) Urine WBC (Auto) (0-5) /hpf Urine RBC (Auto) (0-4) /hpf U Hyaline Cast (Auto) (0-5) /lpf U Epithel Cells (Auto) (0-5) /lpf Urine Bacteria (Auto) (Negative) Salicylates < 1.7 L (2.8-20) mg/dl Urine Opiates Screen (Neg) Ur Methadone, Qual (Neg) Acetaminophen < 2 L (10-30) ug/ml Urine Barbiturates (Neg) Ur Phencyclidine (PCP) (Neg) U Amphetamin/Meth Scrn (Neg) MDMA (Ecstasy) Screen (Neg) U Benzodiazepines Scrn (Neg) Ur Cocaine Metabolite (Neg) U Marijuana (THC) Screen (Neg) Ethyl Alcohol mg/dL (0-3) mg/dl COVID-19 Eval Order SARS-CoV-2 (PCR) (Negative) 01/08/21 01/09/21 01/09/21 Range/Units 22:20 00:47 01:54 WBC (4.8-10.8) K/uL RBC (4.7-6.1) M/uL Hgb (14.0-18.0) g/dL POC Hgb 12.2 L (14.0-18.0) g/dl Hct (42-52) % POC Hct 36 L (42-52) % MCV (80-100) fL MCH (25-34) pg MCHC (32-36) g/dL RDW Std Deviation (36.4-46.3) fL RDW Coeff of Bradford (11.5-14.5) % Plt Count (130-400) K/uL MPV (7.4-10.4) fL Immature Gran % (Auto) % Neut % (Auto) % Lymph % (Auto) % Bond % (Auto) % Eos % (Auto) % Baso % (Auto) % Neut # (Auto) (1.4-6.5) K/uL Lymph # (Auto) (1.2-3.4) K/uL Bond # (Auto) (0.11-0.59) K/uL Eos # (Auto) (0-0.5) K/uL Baso # (Auto) (0-0.2) K/uL Immature Gran # (Auto) (0.00-0.02) K/uL POC pH 7.28 L (7.35-7.45) POC pCO2 52 H (35-46) mmHg POC pO2 > 420 H (80-95) mmHg POC HCO3 24 (19-24) timbo/L POC Total CO2 26 (24-31) mmol/L POC Base Excess -2.0 (-9-1.8) timbo/L POC ABG O2 Sat 100.0 H (90-95) % POC Sodium 145 H (135-144) mmol/L Sodium (136-145) mmol/L POC Potassium 3.8 (3.3-5.0) mmol/L Potassium (3.5-5.1) mmol/L Chloride (98-107) mmol/L Carbon Dioxide (21-32) mmol/L Anion Gap (3-11) BUN (7-18) mg/dl Creatinine (0.6-1.4) mg/dl Est Cr Clr Drug Dosing ml/min Est GFR ( Amer) ml/min Est GFR (Non-Af Amer) ml/min BUN/Creatinine Ratio (10-20) Glucose (70-99) mg/dl Calcium (8.5-10.1) mg/dl Magnesium (1.8-2.4) mg/dl Total Bilirubin (0.2-1) mg/dl AST (15-37) U/L ALT (12-78) U/L Alkaline Phosphatase (45-117) U/L Total Creatine Kinase (39-308) U/L Total Protein (6.4-8.2) gm/dl Albumin (3.4-5.0) gm/dl Globulin (2.5-4.0) gm/dl Albumin/Globulin Ratio (0.9-2) Procalcitonin < 0.05 (0-0.5) ng/ml TSH (0.300-4.500) uIu/ml Urine Color Urine Appearance (Clear) Urine pH (4.5-7.5) Ur Specific [place] (1.000-1.030) Urine Protein (Negative) Urine Glucose (UA) (Negative) Urine Ketones (Negative) Urine Blood (Negative) Urine Nitrite (Negative) Urine Bilirubin (Negative) Urine Urobilinogen (Negative) Ur Leukocyte Esterase (Negative) Urine WBC (Auto) (0-5) /hpf Urine RBC (Auto) (0-4) /hpf U Hyaline Cast (Auto) (0-5) /lpf U Epithel Cells (Auto) (0-5) /lpf Urine Bacteria (Auto) (Negative) Salicylates (2.8-20) mg/dl Urine Opiates Screen (Neg) Ur Methadone, Qual (Neg) Acetaminophen (10-30) ug/ml Urine Barbiturates (Neg) Ur Phencyclidine (PCP) (Neg) U Amphetamin/Meth Scrn (Neg) MDMA (Ecstasy) Screen (Neg) U Benzodiazepines Scrn (Neg) Ur Cocaine Metabolite (Neg) U Marijuana (THC) Screen (Neg) Ethyl Alcohol mg/dL < 3.0 (0-3) mg/dl COVID-19 Eval Order SARS-CoV-2 (PCR) (Negative) 01/09/21 01/09/21 01/09/21 Range/Units 03:11 03:11 03:11 WBC (4.8-10.8) K/uL RBC (4.7-6.1) M/uL Hgb (14.0-18.0) g/dL POC Hgb (14.0-18.0) g/dl Hct (42-52) % POC Hct (42-52) % MCV (80-100) fL MCH (25-34) pg MCHC (32-36) g/dL RDW Std Deviation (36.4-46.3) fL RDW Coeff of Bradford (11.5-14.5) % Plt Count (130-400) K/uL MPV (7.4-10.4) fL Immature Gran % (Auto) % Neut % (Auto) % Lymph % (Auto) % Bond % (Auto) % Eos % (Auto) % Baso % (Auto) % Neut # (Auto) (1.4-6.5) K/uL Lymph # (Auto) (1.2-3.4) K/uL Bond # (Auto) (0.11-0.59) K/uL Eos # (Auto) (0-0.5) K/uL Baso # (Auto) (0-0.2) K/uL Immature Gran # (Auto) (0.00-0.02) K/uL POC pH (7.35-7.45) POC pCO2 (35-46) mmHg POC pO2 (80-95) mmHg POC HCO3 (19-24) timbo/L POC Total CO2 (24-31) mmol/L POC Base Excess (-9-1.8) timbo/L POC ABG O2 Sat (90-95) % POC Sodium (135-144) mmol/L Sodium (136-145) mmol/L POC Potassium (3.3-5.0) mmol/L Potassium (3.5-5.1) mmol/L Chloride (98-107) mmol/L Carbon Dioxide (21-32) mmol/L Anion Gap (3-11) BUN (7-18) mg/dl Creatinine (0.6-1.4) mg/dl Est Cr Clr Drug Dosing ml/min Est GFR ( Amer) ml/min Est GFR (Non-Af Amer) ml/min BUN/Creatinine Ratio (10-20) Glucose (70-99) mg/dl Calcium (8.5-10.1) mg/dl Magnesium (1.8-2.4) mg/dl Total Bilirubin (0.2-1) mg/dl AST (15-37) U/L ALT (12-78) U/L Alkaline Phosphatase (45-117) U/L Total Creatine Kinase (39-308) U/L Total Protein (6.4-8.2) gm/dl Albumin (3.4-5.0) gm/dl Globulin (2.5-4.0) gm/dl Albumin/Globulin Ratio (0.9-2) Procalcitonin (0-0.5) ng/ml TSH (0.300-4.500) uIu/ml Urine Color Dark Yellow Urine Appearance Clear (Clear) Urine pH 5.0 (4.5-7.5) Ur Specific [place] 1.035 H (1.000-1.030) Urine Protein Trace H (Negative) Urine Glucose (UA) Negative (Negative) Urine Ketones 1+ H (Negative) Urine Blood Negative (Negative) Urine Nitrite Negative (Negative) Urine Bilirubin 1+ H (Negative) Urine Urobilinogen Negative (Negative) Ur Leukocyte Esterase Negative (Negative) Urine WBC (Auto) 1-5 (0-5) /hpf Urine RBC (Auto) 0-4 (0-4) /hpf U Hyaline Cast (Auto) >30 H (0-5) /lpf U Epithel Cells (Auto) 20-30 H (0-5) /lpf Urine Bacteria (Auto) Negative (Negative) Salicylates (2.8-20) mg/dl Urine Opiates Screen Neg (Neg) Ur Methadone, Qual Neg (Neg) Acetaminophen (10-30) ug/ml Urine Barbiturates Neg (Neg) Ur Phencyclidine (PCP) Neg (Neg) U Amphetamin/Meth Scrn Neg (Neg) MDMA (Ecstasy) Screen Neg (Neg) U Benzodiazepines Scrn Pos H (Neg) Ur Cocaine Metabolite Neg (Neg) U Marijuana (THC) Screen Neg (Neg) Ethyl Alcohol mg/dL (0-3) mg/dl COVID-19 Eval Order Covid19 at [facility] SARS-CoV-2 (PCR) (Negative) 01/09/21 Range/Units 03:11 WBC (4.8-10.8) K/uL RBC (4.7-6.1) M/uL Hgb (14.0-18.0) g/dL POC Hgb (14.0-18.0) g/dl Hct (42-52) % POC Hct (42-52) % MCV (80-100) fL MCH (25-34) pg MCHC (32-36) g/dL RDW Std Deviation (36.4-46.3) fL RDW Coeff of Bradford (11.5-14.5) % Plt Count (130-400) K/uL MPV (7.4-10.4) fL Immature Gran % (Auto) % Neut % (Auto) % Lymph % (Auto) % Bond % (Auto) % Eos % (Auto) % Baso % (Auto) % Neut # (Auto) (1.4-6.5) K/uL Lymph # (Auto) (1.2-3.4) K/uL Bond # (Auto) (0.11-0.59) K/uL Eos # (Auto) (0-0.5) K/uL Baso # (Auto) (0-0.2) K/uL Immature Gran # (Auto) (0.00-0.02) K/uL POC pH (7.35-7.45) POC pCO2 (35-46) mmHg POC pO2 (80-95) mmHg POC HCO3 (19-24) timbo/L POC Total CO2 (24-31) mmol/L POC Base Excess (-9-1.8) timbo/L POC ABG O2 Sat (90-95) % POC Sodium (135-144) mmol/L Sodium (136-145) mmol/L POC Potassium (3.3-5.0) mmol/L Potassium (3.5-5.1) mmol/L Chloride (98-107) mmol/L Carbon Dioxide (21-32) mmol/L Anion Gap (3-11) BUN (7-18) mg/dl Creatinine (0.6-1.4) mg/dl Est Cr Clr Drug Dosing ml/min Est GFR ( Amer) ml/min Est GFR (Non-Af Amer) ml/min BUN/Creatinine Ratio (10-20) Glucose (70-99) mg/dl Calcium (8.5-10.1) mg/dl Magnesium (1.8-2.4) mg/dl Total Bilirubin (0.2-1) mg/dl AST (15-37) U/L ALT (12-78) U/L Alkaline Phosphatase (45-117) U/L Total Creatine Kinase (39-308) U/L Total Protein (6.4-8.2) gm/dl Albumin (3.4-5.0) gm/dl Globulin (2.5-4.0) gm/dl Albumin/Globulin Ratio (0.9-2) Procalcitonin (0-0.5) ng/ml TSH (0.300-4.500) uIu/ml Urine Color Urine Appearance (Clear) Urine pH (4.5-7.5) Ur Specific [place] (1.000-1.030) Urine Protein (Negative) Urine Glucose (UA) (Negative) Urine Ketones (Negative) Urine Blood (Negative) Urine Nitrite (Negative) Urine Bilirubin (Negative) Urine Urobilinogen (Negative) Ur Leukocyte Esterase (Negative) Urine WBC (Auto) (0-5) /hpf Urine RBC (Auto) (0-4) /hpf U Hyaline Cast (Auto) (0-5) /lpf U Epithel Cells (Auto) (0-5) /lpf Urine Bacteria (Auto) (Negative) Salicylates (2.8-20) mg/dl Urine Opiates Screen (Neg) Ur Methadone, Qual (Neg) Acetaminophen (10-30) ug/ml Urine Barbiturates (Neg) Ur Phencyclidine (PCP) (Neg) U Amphetamin/Meth Scrn (Neg) MDMA (Ecstasy) Screen (Neg) U Benzodiazepines Scrn (Neg) Ur Cocaine Metabolite (Neg) U Marijuana (THC) Screen (Neg) Ethyl Alcohol mg/dL (0-3) mg/dl COVID-19 Eval Order SARS-CoV-2 (PCR) NEGATIVE (Negative) Administered Medications Acetaminophen (Acetaminophen 1000 Mg/100 Ml Iv) 1,000 mg IV Q8H PRN PRN Reason: fever/pain Stop: 01/12/21 05:25 Last Admin: 01/09/21 05:50 Dose: 1,000 mg Documented by: [id number] Fentanyl Citrate (Fentanyl Bolus From Bag) 50 mcg IV Q60M PRN PRN Reason: Pain or Agitation Stop: 01/23/21 03:47 Last Admin: 01/09/21 08:00 Dose: 50 mcg Documented by: [id number] Heparin Sodium (Porcine) (Heparin Sod 5,000 Unit/0.5 Ml Vial) 5,000 units SQ Q8 AMAN Stop: 02/08/21 05:59 Last Admin: 01/09/21 13:47 Dose: 5,000 units Documented by: [id number] Admin: 01/09/21 05:47 Dose: 5,000 units Documented by: [id number] Propofol (Diprivan) 1,000 mg in 100 mls @ 7.821 mls/hr IV .[id number] [facility]; Protocol Stop: 01/12/21 01:29 Last Admin: 01/09/21 16:07 Dose: 15 mcg/kg/min, 7.8 mls/hr Documented by: [id number] Cosigned by: [id number] Titration: 01/09/21 15:57 Dose: 15 mcg/kg/min, 7.8 mls/hr Documented by: [id number] Cosigned by: [id number] Titration: 01/09/21 15:48 Dose: 15 mcg/kg/min, 7.8 mls/hr Documented by: [id number] Admin: 01/09/21 12:14 Dose: Not Given Documented by: [id number] Titration: 01/09/21 11:22 Dose: 20 mcg/kg/min, 10.4 mls/hr Documented by: [id number] Titration: 01/09/21 11:13 Dose: 30 mcg/kg/min, 15.6 mls/hr Documented by: [id number] Titration: 01/09/21 10:27 Dose: 35 mcg/kg/min, 18.2 mls/hr Documented by: [id number] Titration: 01/09/21 09:30 Dose: 30 mcg/kg/min, 15.6 mls/hr Documented by: [id number] Titration: 01/09/21 09:14 Dose: 25 mcg/kg/min, 13 mls/hr Documented by: [id number] Titration: 01/09/21 09:00 Dose: 20 mcg/kg/min, 10.4 mls/hr Documented by: [id number] Titration: 01/09/21 08:41 Dose: 15 mcg/kg/min, 7.8 mls/hr Documented by: [id number] Titration: 01/09/21 08:26 Dose: 10 mcg/kg/min, 5.2 mls/hr Documented by: [id number] Titration: 01/09/21 07:06 Dose: 0 mcg/kg/min, 0 mls/hr Documented by: [id number] Cosigned by: [id number] Titration: 01/09/21 05:05 Dose: 0 mcg/kg/min, 0 mls/hr Documented by: [id number] Titration: 01/09/21 04:17 Dose: 10 mcg/kg/min, 5.2 mls/hr Documented by: [id number] Admin: 01/09/21 01:15 Dose: 5 mcg/kg/min, 2.6 mls/hr Documented by: [id number] Cosigned by: [id number] Fentanyl Citrate (Fentanyl Drip) 1,250 mcg in 250 mls @ 25 mls/hr IV .Q10H [facility]; Protocol Stop: 01/23/21 03:59 Last Admin: 01/09/21 15:29 Dose: 125 mcg/hr, 25 mls/hr Documented by: [id number] Cosigned by: [id number] Titration: 01/09/21 15:29 Dose: 125 mcg/hr, 25 mls/hr Documented by: [id number] Cosigned by: [id number] Titration: 01/09/21 08:10 Dose: 125 mcg/hr, 25 mls/hr Documented by: [id number] Cosigned by: [id number] Titration: 01/09/21 07:06 Dose: 100 mcg/hr, 20 mls/hr Documented by: [id number] Cosigned by: [id number] Titration: 01/09/21 05:40 Dose: 100 mcg/hr, 20 mls/hr Documented by: [id number] Cosigned by: [id number] Admin: 01/09/21 05:13 Dose: 25 mcg/hr, 5 mls/hr Documented by: [id number] Cosigned by: [id number] Famotidine 20 mg/ Syringe 5 mls @ 2.5 mls/min IV BID [facility] Stop: 02/08/21 08:59 Last Admin: 01/09/21 08:24 Dose: 2.5 mls/min Documented by: [id number] Dexmedetomidine HCl 400 mcg/ (Sodium Chloride) 100 mls @ 26.07 mls/hr IV .Q3H51M [facility]; Protocol Stop: 01/13/21 05:29 Last Admin: 01/09/21 16:07 Dose: Not Given Documented by: [id number] Titration: 01/09/21 15:34 Dose: 1.2 mcg/kg/hr, 26.1 mls/hr Documented by: [id number] Admin: 01/09/21 15:29 Dose: 1 mcg/kg/hr, 21.7 mls/hr Documented by: [id number] Cosigned by: [id number] Titration: 01/09/21 14:58 Dose: 1 mcg/kg/hr, 21.7 mls/hr Documented by: [id number] Cosigned by: [id number] Admin: 01/09/21 12:15 Dose: Not Given Documented by: [id number] Titration: 01/09/21 11:14 Dose: 1 mcg/kg/hr, 21.7 mls/hr Documented by: [id number] Admin: 01/09/21 10:26 Dose: 1.1 mcg/kg/hr, 23.9 mls/hr Documented by: [id number] Cosigned by: [id number] Titration: 01/09/21 10:25 Dose: 1.1 mcg/kg/hr, 23.9 mls/hr Documented by: [id number] Cosigned by: [id number] Titration: 01/09/21 08:20 Dose: 1.1 mcg/kg/hr, 23.9 mls/hr Documented by: [id number] Titration: 01/09/21 08:00 Dose: 1 mcg/kg/hr, 21.7 mls/hr Documented by: [id number] Titration: 01/09/21 07:45 Dose: 0.9 mcg/kg/hr, 19.6 mls/hr Documented by: [id number] Titration: 01/09/21 07:06 Dose: 0.8 mcg/kg/hr, 17.4 mls/hr Documented by: [id number] Cosigned by: [id number] Titration: 01/09/21 06:53 Dose: 0.8 mcg/kg/hr, 17.4 mls/hr Documented by: [id number] Admin: 01/09/21 05:42 Dose: 0.9 mcg/kg/hr, 19.6 mls/hr Documented by: [id number] Cosigned by: [id number] Clindamycin Phosphate 900 mg/ (Dextrose) 56 mls @ 112 mls/hr IV Q8H [facility]; Protocol Stop: 01/16/21 11:59 Last Infusion: 01/09/21 15:29 Dose: 0 mls/hr Documented by: [id number] Admin: 01/09/21 14:10 Dose: 112 mls/hr Documented by: [id number] Thiamine HCl 100 mg/ Syringe 10 mls @ 2 mls/min IV QAM [facility] Stop: 02/08/21 08:59 Last Admin: 01/09/21 10:25 Dose: 2 mls/min Documented by: [id number] Folic Acid 1 mg/ Syringe 10 mls @ 5 mls/min IV QAM [facility] Stop: 02/08/21 08:59 Last Admin: 01/09/21 10:26 Dose: 5 mls/min Documented by: [id number] Potassium Phosphate 21 mmol/ (Sodium Chloride) 507 mls @ 88 mls/hr IV ONE ONE Stop: 01/09/21 17:00 Last Admin: 01/09/21 11:13 Dose: 88 mls/hr Documented by: [id number] Phenylephrine HCl 40 mg/ (Dextrose) 504 mls @ 131.695 mls/hr IV .Q3H50M [facility]; Protocol Stop: 02/08/21 15:59 Last Titration: 01/09/21 16:09 Dose: 2 mcg/kg/min, 131.7 mls/hr Documented by: [id number] Admin: 01/09/21 16:07 Dose: 1.9 mcg/kg/min, 125.1 mls/hr Documented by: [id number] Cosigned by: [id number] Propofol (Propofol Bolus From Bag) 20 mg IV Q5M PRN PRN Reason: Sedation Stop: 01/12/21 01:28 Last Admin: 01/09/21 09:30 Dose: 20 mg Documented by: [id number] Cosigned by: [id number] Admin: 01/09/21 08:05 Dose: 20 mg Documented by: [id number] Cosigned by: [id number] Admin: 01/09/21 05:15 Dose: 20 mg Documented by: [id number] Cosigned by: [id number] Admin: 01/09/21 01:45 Dose: 20 mg Documented by: [id number] Cosigned by: [id number] Discontinued Medications Fentanyl Citrate (Fentanyl Citrate 100 Mcg/2 Ml Vial) 100 mcg IV NOW STA Stop: 01/09/21 02:29 Last Admin: 01/09/21 03:10 Dose: 100 mcg Documented by: [id number] Fentanyl Citrate (Fentanyl Citrate 100 Mcg/2 Ml Vial) 100 mcg IV NOW STA Stop: 01/09/21 03:40 Last Admin: 01/09/21 03:41 Dose: 100 mcg Documented by: [id number] Fentanyl Citrate (Fentanyl Citrate 100 Mcg/2 Ml Vial) 100 mcg IV NOW STA Stop: 01/09/21 03:54 Last Admin: 01/09/21 03:55 Dose: 100 mcg Documented by: [id number] Fentanyl Citrate (Fentanyl Citrate 100 Mcg/2 Ml Vial) 100 mcg IV NOW STA Stop: 01/09/21 05:17 Last Admin: 01/09/21 05:23 Dose: 100 mcg Documented by: [id number] Sodium Chloride (Nss 1000ml) 1,000 mls @ 999 mls/hr IV .Q1H1M [facility] Stop: 01/09/21 01:30 Last Infusion: 01/09/21 03:22 Dose: 0 mls/hr Documented by: [id number] Admin: 01/09/21 00:40 Dose: 999 mls/hr Documented by: [id number] Ceftriaxone Sodium (Rocephin) 1,000 mg in 50 mls @ 100 mls/hr IV NOW STA Stop: 01/09/21 02:08 Last Infusion: 01/09/21 03:42 Dose: 0 mls/hr Documented by: [id number] Admin: 01/09/21 03:10 Dose: 100 mls/hr Documented by: [id number] Metronidazole (Flagyl) 500 mg in 100 mls @ 100 mls/hr IV NOW STA Stop: 01/09/21 02:38 Last Infusion: 01/09/21 04:21 Dose: 0 mls/hr Documented by: [id number] Admin: 01/09/21 03:21 Dose: 100 mls/hr Documented by: [id number] Sodium Chloride (Nss 1000ml) 500 mls @ 999 mls/hr IV .Q31M ONE Stop: 01/09/21 02:58 Last Infusion: 01/09/21 03:33 Dose: 0 mls/hr Documented by: [id number] Admin: 01/09/21 02:00 Dose: 999 mls/hr Documented by: [id number] Sodium Chloride (Nss) 500 mls @ 125 mls/hr IV .Q4H [facility] Stop: 02/08/21 02:29 Last Infusion: 01/09/21 04:22 Dose: 0 mls/hr Documented by: [id number] Admin: 01/09/21 03:28 Dose: 125 mls/hr Documented by: [id number] Lactated Ringer's (Lr) 1,000 mls @ 500 mls/hr IV .Q2H [facility] Stop: 01/09/21 05:55 Last Infusion: 01/09/21 06:54 Dose: 0 mls/hr Documented by: [id number] Admin: 01/09/21 03:59 Dose: 500 mls/hr Documented by: [id number] Dexmedetomidine HCl 200 mcg/ (Sodium Chloride) 50 mls @ 19.553 mls/hr IV .Q2H34M [facility]; Protocol Stop: 01/09/21 06:15 Last Titration: 01/09/21 07:06 Dose: 0 mcg/kg/hr, 0 mls/hr Documented by: [id number] Titration: 01/09/21 05:15 Dose: 0.9 mcg/kg/hr, 19.6 mls/hr Documented by: [id number] Titration: 01/09/21 05:00 Dose: 0.8 mcg/kg/hr, 17.4 mls/hr Documented by: [id number] Titration: 01/09/21 04:39 Dose: 0.7 mcg/kg/hr, 15.2 mls/hr Documented by: [id number] Titration: 01/09/21 04:15 Dose: 0.6 mcg/kg/hr, 13 mls/hr Documented by: [id number] Titration: 01/09/21 04:09 Dose: 0.5 mcg/kg/hr, 10.9 mls/hr Documented by: [id number] Admin: 01/09/21 04:02 Dose: 0.4 mcg/kg/hr, 8.7 mls/hr Documented by: [id number] Cosigned by: [id number] Clindamycin Phosphate 600 mg/ (Dextrose) 54 mls @ 100 mls/hr IV ONE STA Stop: 01/09/21 04:28 Last Infusion: 01/09/21 06:54 Dose: 0 mls/hr Documented by: [id number] Admin: 01/09/21 04:12 Dose: 100 mls/hr Documented by: [id number] Lactated Ringer's (Lr) 1,000 mls @ 100 mls/hr IV .Q10H [facility] Stop: 02/08/21 05:59 Last Infusion: 01/09/21 15:51 Dose: 100 mls/hr Documented by: [id number] Admin: 01/09/21 05:51 Dose: 100 mls/hr Documented by: [id number] Phenylephrine HCl 20 mg/ (Dextrose) 502 mls @ 249.228 mls/hr IV .Q2H1M [facility]; Protocol Stop: 01/09/21 16:00 Last Admin: 01/09/21 16:06 Dose: Not Given Documented by: [id number] Titration: 01/09/21 16:06 Dose: 0 mcg/kg/min, 0 mls/hr Documented by: [id number] Titration: 01/09/21 15:32 Dose: 1.9 mcg/kg/min, 249.2 mls/hr Documented by: [id number] Titration: 01/09/21 15:00 Dose: 1.7 mcg/kg/min, 223 mls/hr Documented by: [id number] Admin: 01/09/21 13:46 Dose: 1.5 mcg/kg/min, 196.8 mls/hr Documented by: [id number] Cosigned by: [id number] Titration: 01/09/21 13:07 Dose: 1.5 mcg/kg/min, 196.8 mls/hr Documented by: [id number] Cosigned by: [id number] Admin: 01/09/21 12:15 Dose: Not Given Documented by: [id number] Titration: 01/09/21 11:25 Dose: 1.5 mcg/kg/min, 196.8 mls/hr Documented by: [id number] Admin: 01/09/21 10:26 Dose: 1.3 mcg/kg/min, 170.5 mls/hr Documented by: [id number] Cosigned by: [id number] Titration: 01/09/21 10:18 Dose: 1.3 mcg/kg/min, 170.5 mls/hr Documented by: [id number] Cosigned by: [id number] Titration: 01/09/21 09:20 Dose: 1.3 mcg/kg/min, 170.5 mls/hr Documented by: [id number] Titration: 01/09/21 08:15 Dose: 1.1 mcg/kg/min, 144.3 mls/hr Documented by: [id number] Titration: 01/09/21 07:56 Dose: 0.9 mcg/kg/min, 118.1 mls/hr Documented by: [id number] Titration: 01/09/21 07:06 Dose: 0.7 mcg/kg/min, 91.8 mls/hr Documented by: [id number] Cosigned by: [id number] Titration: 01/09/21 06:37 Dose: 0.7 mcg/kg/min, 91.8 mls/hr Documented by: [id number] Admin: 01/09/21 06:14 Dose: 0.5 mcg/kg/min, 65.6 mls/hr Documented by: [id number] Cosigned by: [id number] Midazolam HCl (Midazolam Hcl 1 Mg/Ml 2ml Vial) Confirm Administered Dose 2 mg .ROUTE .STK-MED ONE Stop: 01/09/21 01:25 Last Admin: 01/09/21 01:30 Dose: 2 mg Documented by: [id number] Midazolam HCl (Midazolam Hcl 1 Mg/Ml 2ml Vial) 2.5 mg IV NOW STA Stop: 01/09/21 01:36 Last Admin: 01/09/21 02:47 Dose: 2.5 mg Documented by: [id number] Midazolam HCl (Midazolam Hcl 1 Mg/Ml 2ml Vial) 2 mg IV NOW STA Stop: 01/09/21 02:29 Last Admin: 01/09/21 02:00 Dose: 2 mg Documented by: [id number] Midazolam HCl (Midazolam Hcl 1 Mg/Ml 2ml Vial) 2 mg IV NOW STA Stop: 01/09/21 02:55 Last Admin: 01/09/21 03:10 Dose: 2 mg Documented by: [id number] Midazolam HCl (Midazolam Hcl 1 Mg/Ml 2ml Vial) 2 mg IV NOW STA Stop: 01/09/21 03:40 Last Admin: 01/09/21 03:41 Dose: 2 mg Documented by: [id number] Midazolam HCl (Midazolam Hcl 1 Mg/Ml 2ml Vial) 2 mg IV NOW STA Stop: 01/09/21 03:54 Last Admin: 01/09/21 03:55 Dose: 2 mg Documented by: [id number] Midazolam HCl (Midazolam Hcl 1 Mg/Ml 2ml Vial) 2 mg IV NOW STA Stop: 01/09/21 05:17 Last Admin: 01/09/21 05:23 Dose: 2 mg Documented by: [id number] Midazolam HCl (Midazolam Hcl 5 Mg/Ml 1 Ml Vial) Confirm Administered Dose 5 mg .ROUTE .STK-MED ONE Stop: 01/09/21 08:15 Last Increment: 01/09/21 08:43 Dose: 2.5 mg Documented by: [id number] Midazolam HCl (Midazolam Hcl 1 Mg/Ml 2ml Vial) 2.5 mg IV NOW STA Stop: 01/09/21 08:43 Last Admin: 01/09/21 08:54 Dose: Not Given Documented by: [id number] Miscellaneous (Rapid Sequence Induction Bag) Confirm Administered Dose 1 ea .ROUTE .STK-MED ONE Stop: 01/09/21 00:50 Last Admin: 01/09/21 01:00 Dose: 1 ea Documented by: [id number] Propofol (Propofol Iv Emulsion 10 Mg/Ml 100 Ml Vial) Confirm Administered Dose 1,000 mg IV .STK-MED ONE Stop: 01/09/21 01:06 Last Admin: 01/09/21 02:57 Dose: Not Given Documented by: [id number] Imaging Data Radiologist's Impression: Head CT 01/09/21 01:59 CT head/brain wo con CLINICAL HISTORY: 40 years-old Male with altered ms. Acutely altered mental status with drug overdose TECHNIQUE: Multiple axial CT images of the head were obtained without contrast. A dose lowering technique was utilized adhering to the principles of ALARA. CT DOSE: 691.05 mGy.cm COMPARISON: None. FINDINGS: No acute intracranial hemorrhage, midline shift, intracranial mass, hydrocephalus, territorial ischemia or abnormal extra-axial collection. The calvarium is intact. The paranasal sinuses, mastoid air cells, and middle ear cavities are clear. IMPRESSION: No acute intracranial abnormality. ACT 112: Negative or not required by law. The above report was generated using voice recognition software. It may contain grammatical, syntax or spelling errors. Electronically signed by: Khoa Salinas M.D. 01/09/2021 7:48 AM Discharge Plan Visit Data Chief Complaint: Overdose (Accidental) Stated Complaint: AGITATED, NOW UNRESPONSIVE AFTER MEDS GIVEN ED Provider: Evelyn Jennings Discharge Problem: Respiratory failure, Hypoxia, Acute alteration in mental status Patient Disposition: Admitted As Inpatient Discharge Instructions Interventions: ED Discharge Assessment Last Done: 01/09/21 04:15 Discharge Problem: Respiratory failure Qualifiers: Chronicity: acute Respiratory failure complication: hypoxia Qualified Code(s): J96.01 - Acute respiratory failure with hypoxia
[2021-01-09] MEDS: THIAMINE HCL 100 MG in SYRINGE 9 ML IV SCH (10:25)
[2021-01-09] MEDS: FOLIC ACID 1 MG in SYRINGE 9.8 ML IV SCH (10:26)
[2021-01-09] MEDS ORDERED: POTASSIUM PHOS 3 MMOL/1 ML INFUSION IV ONE (10:26)
[2021-01-09] MEDS ORDERED: POTASSIUM PHOSPHATE 21 MMOL in SODIUM CHLORIDE 0.9% 500 ML IV ONE (11:15)
--- NOTE | 2021-01-09 12:35 | XRay Report ---
XR chest 1V portable HISTORY: 40 years-old Male central line placement status post placement of a left IJ central venous catheter COMPARISON: Chest radiograph 01/09/2021 at 1:05 AM TECHNIQUE: Supine AP view of the chest FINDINGS: Endotracheal tube overlies the midline, 3.6 cm superior to the misael. Enteric tube courses below the diaphragm outside the [id number]. Status post placement of a left IJ central venous catheter with distal tip in the expected location of the superior aspect of the SVC. No pneumothorax. Trace right pleural effusion. Pulmonary vascular congestion with progressively worsened perihilar and right lung base predominant airspace opacities. The patient is rotated. No acute fracture. IMPRESSION: 1. Lines and tubes as above. No pneumothorax. 2. Progressively worsened perihilar and right basilar predominant airspace opacities suggestive of pn eumonia. Pulmonary edema could appear similarly. 3. Trace right pleural effusion. ACT 112: Negative or not required by law. The above report was generated using voice recognition software. It may contain grammatical, syntax o r spelling errors. Electronically signed by: Khoa Salinas M.D. 01/09/2021 12:33 PM
[2021-01-09] MEDS: CLINDAMYCIN 900 MG in DEXTROSE 5% 50 ML IV SCH ×2 (14:10→20:02)
[2021-01-09] MEDS ORDERED: MIDAZOLAM HCL 1 MG/ML 2ML VIAL IV ONE (14:18)
[2021-01-09] MEDS ORDERED: fentaNYL citrate 100 MCG/2 ML VIAL IV ONE (14:18)
[2021-01-09] MEDS ORDERED: SUCCINYLCHOLINE CHLORIDE 20 MG/ML 10 ML VIAL IV ONE (14:18)
[2021-01-09] MEDS ORDERED: ETOMIDATE 2 MG/ML 20 ML VIAL IV ONE (14:18)
--- NOTE | 2021-01-09 15:00 | Hospitalist Progress Note ---
Date of Service January 09, 2021 Assessment & Plan (1) Respiratory failure: Plan: Patient is a 40-year-old male with history of anxiety/mood disorder, illicit drug abuse as per records and other medical problems presents from [facility] found to be unresponsive after receiving Ativan, Thorazine for agitation combative behavior while at psychiatric facility. Acute respiratory failure with hypoxia Oversedation at psychiatric facility secondary to combativeness Agitation/Encephalopathy/Unresponsive Episode S/P Intubation Aspiration -CT Head:No acute intracranial abnormality. -CXR:No acute cardiopulmonary abnormality. 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 Empirically on clindamycin Acute Kidney Injury Cr:1.6>1.25 Received IV fluids Monitor renal function Avoid nephrotoxic agents as able Hypophosphatemia Replace electrolytes as needed Monitor Anxiety/mood disorder Past tobacco abuse Resume home meds as able DVT Px: Heparin SQ Code Status Full Code Admission and Anticipated Discharge Date Admission Date: January 09, 2021 Subjective Patient patient is seen and examined at bedside Currently sedated and intubated Hypophosphatemia on labs Febrile today Renal function improved Blood/Sputum culture pending Review of Systems Review of Systems: Unobtainable due to endotracheal tube Physical Exam Physical Exam: Physical Exam: Vitals signs as noted above General Appearance:Moderately built and nourished, Intubated Head: normocephalic, Atraumatic Eyes: normal inspection Neck: supple, Trachea midline Respiratory/Chest: Normal breath sounds, CTA Cardiovascular: S1, S2, No murmur Abdomen/GI:Soft, Non tender, Bowel sounds present Extremities/Musculoskeletal:normal inspection, no edema Neurologic/Psych:Intubated and sedated Skin: normal color, warm Results & Data Results & Data ([facility]) Vital Signs (Past 12 Hours) Vital Signs Temp Pulse Pulse Resp BP BP Pulse Ox 01/09/21 11:47 83 98 01/09/21 11:37 38.2 C H 83 72/50 L 97 01/09/21 11:17 38.3 C H 83 65/48 L 95 01/09/21 11:10 38.3 C H 83 68/47 L 93 01/09/21 10:55 38.3 C H 85 72/42 L 90 01/09/21 10:45 87 29 H 90 01/09/21 10:40 38.3 C H 87 80/53 L 83 L 01/09/21 10:26 38.4 C H 89 94/58 L 85 L 01/09/21 10:09 38.4 C H 88 94/65 L 82 L 01/09/21 09:55 38.4 C H 88 63/46 L 92 01/09/21 09:40 38.5 C H 88 78/52 L 90 01/09/21 09:25 38.5 C H 89 59/50 L 86 L 01/09/21 09:10 38.5 C H 92 H 92/69 L 88 L 01/09/21 08:47 38.4 C H 107 H 116/70 85 L 01/09/21 08:40 38.4 C H 111 H 98/68 L 85 L 01/09/21 08:25 38.3 C H 125 H 108/70 84 L 01/09/21 08:10 38.4 C H 87 85/53 L 99 01/09/21 08:00 93 H 01/09/21 07:45 38.4 C H 87 90/50 L 98 01/09/21 07:35 86 24 99 01/09/21 07:30 38.5 C H 88 84/51 L 100 01/09/21 07:15 38.5 C H 90 90/53 L 99 01/09/21 07:00 38.5 C H 90 83/48 L 99 01/09/21 06:45 38.5 C H 93 H 81/49 L 98 01/09/21 06:40 38.5 C H 95 H 85/50 L 98 01/09/21 06:35 38.5 C H 98 H 84/51 L 98 01/09/21 06:30 38.6 C H 96 H 84/51 L 98 01/09/21 06:25 38.6 C H 96 H 81/49 L 97 01/09/21 06:20 38.6 C H 96 H 78/46 L 96 01/09/21 06:14 38.6 C H 98 H 87/50 L 95 01/09/21 06:05 38.6 C H 101 H 89/54 L 94 01/09/21 05:54 38.6 C H 104 H 83/54 L 95 01/09/21 05:45 38.7 C H 107 H 92/53 L 94 01/09/21 05:35 116 H 93/56 L 95 01/09/21 05:32 105 H 86/48 L 95 01/09/21 05:26 107 H 01/09/21 05:25 105 H 33 H 97/51 L 96 01/09/21 05:19 111 H 96/57 L 94 01/09/21 05:10 124 H 31 H 76/43 L 93 01/09/21 05:05 132 H 28 H 109/48 L 94 01/09/21 05:02 37.9 C H 139 H 20 95 01/09/21 04:45 37.9 C H 115 H 23 124/62 96 01/09/21 04:30 108 H 106/65 98 01/09/21 04:15 119 H 115/64 95 01/09/21 04:09 22 01/09/21 04:00 119 H 131/72 98 01/09/21 03:46 121 H 153/92 H 96 01/09/21 03:30 108 H 124/76 97 01/09/21 03:15 103 H 97/58 L 96 01/09/21 03:00 97 H 102/64 96 Laboratory Results Short CBC 01/08/21 01/09/21 Range/Units 22:20 05:57 WBC 7.94 5.57 (4.8-10.8) K/uL Hgb 14.3 12.8 L (14.0-18.0) g/dL Hct 42.2 37.9 L (42-52) % Plt Count 241 185 (130-400) K/uL BMP 01/08/21 01/09/21 22:20 05:57 Sodium 140 146 H Potassium 3.9 4.0 Chloride 111 H 115 H Carbon Dioxide 23 24 BUN 27 H 26 H Creatinine 1.66 H 1.25 D Glucose 102 H 88 Calcium 9.4 7.9 L D Cardiac Enzymes 01/08/21 Range/Units 22:20 Total Creatine Kinase 309 H (39-308) U/L Liver Function 01/08/21 Range/Units 22:20 Total Bilirubin 0.8 (0.2-1) mg/dl AST 26 (15-37) U/L ALT 26 (12-78) U/L Alkaline Phosphatase 100 (45-117) U/L Albumin 4.3 (3.4-5.0) gm/dl Urine 01/09/21 Range/Units 03:11 Urine Color Dark Yellow Urine Appearance Clear (Clear) Urine pH 5.0 (4.5-7.5) Ur Specific [place] 1.035 H (1.000-1.030) Urine Protein Trace H (Negative) Urine Glucose (UA) Negative (Negative)
[2021-01-09] MEDS: PHENYLEPHRINE HCL 40 MG in DEXTROSE 5% 500 ML IV SCH ×2 (16:07→19:53)
[2021-01-10] MEDS: PHENYLEPHRINE HCL 40 MG in DEXTROSE 5% 500 ML IV SCH ×9 (00:08→18:30)
[2021-01-10] MEDS: fentaNYL DRIP 1,250 MCG/250 ML BAG IV SCH ×3 (00:59→18:18)
[2021-01-10] MEDS: DEXMEDETOMIDINE HCL 400 MCG in 0.9 % SODIUM CHLORIDE 96 ML IV SCH ×5 (01:52→10:06)
[2021-01-10] MEDS: PROPOFOL BOLUS FROM BAG IV PRN (04:00)
[2021-01-10] MEDS: propofoL 1,000 MG/100 ML VIAL IV SCH ×4 (04:41→21:52)
[2021-01-10] MEDS: CLINDAMYCIN 900 MG in DEXTROSE 5% 50 ML IV SCH ×3 (04:52→20:31)
[2021-01-10] MEDS: HEPARIN SOD 5,000 UNIT/0.5 ML VIAL SQ SCH ×3 (04:57→21:53)
[2021-01-10 05:44] LABS: Basophils # (auto) 0.02 K/uL (0-0.2); Basophils % (auto) 0.2 %; Eosinophils # (auto) 0.17 K/uL (0-0.5); Eosinophils % (auto) 1.5 %; Hematocrit (blood only) 36.9 % (42-52); Hemoglobin 12.3 g/dL (14.0-18.0); Immature Granulocytes # (auto) 0.03 K/uL (0.00-0.02); Immature Granulocytes % (auto) 0.3 %; Lymphocytes # (auto) 1.39 K/uL (1.2-3.4); Lymphocytes % (auto) 12.2 %; Mean Corpuscular Hemoglobin 29.9 pg (25-34); Mean Corpuscular Hgb Conc 33.3 g/dL (32-36); Mean Corpuscular Volume 89.6 fL (80-100); Monocytes # (auto) 0.76 K/uL (0.11-0.59); Monocytes % (auto) 6.7 %; Neutrophils # (auto) 8.99 K/uL (1.4-6.5); Neutrophils % (auto) 79.1 %; Platelet Count 193 K/uL (130-400); Red Blood Count 4.12 M/uL (4.7-6.1); White Blood Count 11.36 K/uL (4.8-10.8)
[2021-01-10 06:20] LABS: iSTAT Allen Test Pass; iSTAT Arterial Blood Gas HCO3 21 meg/L (19-24); iSTAT Arterial Blood Gas pCO2 40 mmHg (35-46); iSTAT Arterial Blood Gas pH 7.33 (7.35-7.45); iSTAT Arterial Blood Gas pO2 55 mmHg (80-95); iSTAT Carbon Dioxide 22 mmol/L (24-31); iSTAT FiO2 60 %; iSTAT Site L Radial
[2021-01-10 06:23] LABS: BUN Creatinine Ratio 20.3 (10-20); Calcium 7.7 mg/dl (8.5-10.1); Creatinine Clr Calc Pharmacy 107.8 ml/min; Est GFR (African American) 109.2 ml/min; Est GFR (Non-African American) 94.2 ml/min; Magnesium 2.2 mg/dl (1.8-2.4); Phosphorus 1.8 mg/dl (2.5-4.9); Potassium 3.4 mmol/L (3.5-5.1)
--- NOTE | 2021-01-10 06:57 | Electrocardiogram Report ---
Test Reason : Blood Pressure : / mmHG Vent. Rate : 114 BPM Atrial Rate : 114 BPM P-R Int : 130 ms QRS Dur : 096 ms QT Int : 346 ms P-R-T Axes : 065 -19 022 degrees QTc Int : 476 ms Sinus tachycardia Otherwise normal ECG No previous ECGs available Confirmed by Aristides Gates ([id number]) on 01/10/2021 6:57:26 AM Referred By: Amelie He Confirmed By:Aristides Gates
[2021-01-10] MEDS: FAMOTIDINE 20 MG in SYRINGE 3 ML IV SCH ×2 (08:30→20:31)
[2021-01-10] MEDS: THIAMINE HCL 100 MG in SYRINGE 9 ML IV SCH (08:30)
[2021-01-10] MEDS: FOLIC ACID 1 MG in SYRINGE 9.8 ML IV SCH (08:30)
--- NOTE | 2021-01-10 08:47 | XRay Report ---
SINGLE VIEW CHEST CLINICAL HISTORY: Respiratory failure FINDINGS: An AP, portable, upright chest radiograph is compared to studies performed earlier the same day 01/09/2021. The examination is degraded by portable technique and patient rotation. An endotrache al tube, an enteric tube, and a left internal jugular central venous catheter are unchanged in positi on. The cardiomediastinal silhouette is unremarkable. Right greater than left bilateral airspace opac ities are similar in appearance to yesterday. Small pleural effusions are suggested. No pneumothorax is seen. There is a healed left-sided rib fracture. IMPRESSION: 1. Stable lines and tubes. 2. Right greater than left bilateral airspace opacities are similar to yesterday. Differential consid erations include multifocal pneumonia and/or pulmonary edema. Radiographic follow-up to resolution is recommended. 3. Suspect small pleural effusions. ACT 112: Negative or not required by law. Electronically signed by: Martin Maurer M.D. 01/10/2021 8:45 AM
[2021-01-10] MEDS ORDERED: POTASSIUM PHOS 3 MMOL/1 ML INFUSION IV ONE (09:07)
--- NOTE | 2021-01-10 09:22 | Critical Care Progress Note ---
Date of Service January 10, 2021 Assessment & Plan (1) Aspiration into airway: Plan: Reason Critically Ill: 40-year-old male presents to the ICU mechanically ventilated for acute hypoxic respiratory failure following what is likely an aspiration event which occurred in inpatient psych. Neuro - Agitation/encephalopathypatient was found to be agitated at the [facility] and did receive Ativan and Thorazine -Currently mechanically ventilated and sedated with fentanyl drip, Precedex -Ammonia, BUN, and LFTs within normal limits -UDS thus far only positive for benzos, follow-up final result. EtOH negative. 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 -CT head negative for acute intracranial process -Start thiamine and folic acid daily -Continue Effexor and aripiprazole when appropriate -Consult psych once patient stable Cardiac - Hypotensionlikely sedation related however cannot rule out possible distributive shock following aspiration event -Maintain maps greater than 65 with phenylephrine infusion -Hold antihypertensives -Transition to single agent Versed and fentanyl for sedation and analgesia Respiratory - Acute hypoxic respiratory failurelikely in the setting of aspiration pneumonitis as patient was witnessed vomiting and suddenly became in respiratory distress -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 Acute lung injury -Sputum culture/BAL pending -See ID below -Continuous end-tidal CO2 and oxygen saturation monitoring -Wean vent as tolerated -Bronchoscopy today GI - NG tube to low intermittent suction IV famotidine twice daily RENAL/LYTES - AKIcreatinine improving -Avoid nephrotoxins renally adjust medications - Foleystrict I's and Os ENDO - No history of diabetes or thyroid disease ICU hyperglycemic protocol TSH within normal limits HEME - H&H stable, monitor routine CBCs ID - Pneumonia?No leukocytosis, pro Augusto negative, lactate negative. Now febrile. Chest x-ray with right middle and lower lobe infiltrates suspicious for aspiration. Suspect this is likely aspiration pneumonitis given history -Blood cultures and sputum culture pending -UA unremarkable for infectious process -Continue clindamycin day 2 of 7 LINES/IV ACCESS - Peripheral IVs DVT PROPHYLAXIS - SCDs, heparin I have updated the patient's mother Ethan Angel [phone] and obtained consent for bronchoscopy today. (2) Encephalopathy acute: (3) TRAVIS (acute kidney injury): (4) Acute respiratory failure with hypoxia: (5) Anxiety and depression: Admission and Anticipated Discharge Date Admission Date: January 09, 2021 Supervising Physician Co-Signing Physician Notes I have personally spent 50 minutes of critical care time in the direct management of this patient. This is a life/limb threatening event. This includes time spent evaluating patient, direct bedside care, chart review, placing orders, interpretation of diagnostic studies, discussion with consultants, patient, and family members, as well as other required patient management activities. This time is exclusive of all separately billable procedures, and teaching time and separate from and in addition to any other critical care service time. Subjective Overnight there were no events, when patient lighten sedation he became rather agitated and dropped his oxygen saturation. Physical Exam Physical Exam: General: Sedated. nontoxic. Skin: Warm, dry, Head: Atraumatic Ears, nose, mouth and throat: airway obscured by endotracheal tube Cardiovascular: Normal peripheral perfusion Respiratory: no respiratory distress, ventilator settings reviewed Gastrointestinal: Non distended Musculoskeletal: No deformity Results & Data Results & Data ([facility]) Vital Signs (Past 12 Hours) Vital Signs Temp Pulse Resp BP Pulse Ox 01/10/21 07:25 72 22 98 01/10/21 05:55 22 01/10/21 04:55 38.1 C H 63 108/71 94 01/10/21 04:15 71 22 93 01/10/21 03:55 38.2 C H 68 100/60 92 01/10/21 02:55 38.2 C H 71 94/59 L 93 01/10/21 01:55 38.3 C H 72 94/62 L 92 01/10/21 00:55 38.2 C H 74 98/66 L 94 01/10/21 00:00 74 01/09/21 23:55 38.2 C H 72 88/64 L 91 01/09/21 23:40 38.2 C H 71 95/68 L 91 01/09/21 23:25 38.2 C H 74 88/49 L 92 01/09/21 23:10 38.1 C H 74 92/64 L 91 01/09/21 22:55 38.1 C H 74 91/62 L 92 01/09/21 22:40 38.1 C H 73 89/64 L 94 01/09/21 22:25 38.0 C H 74 22 91/63 L 93 01/09/21 22:10 38.0 C H 74 94/64 L 93 01/09/21 21:55 38.0 C H 75 88/63 L 93 01/09/21 21:40 37.9 C H 75 94/65 L 92 01/09/21 21:25 37.9 C H 75 94/65 L 94 Laboratory Results 01/10/21 01/10/21 01/10/21 Range/Units 06:06 05:28 05:28 WBC 11.36 H (4.8-10.8) K/uL RBC 4.12 L (4.7-6.1) M/uL Hgb 12.3 L (14.0-18.0) g/dL Hct 36.9 L (42-52) % MCV 89.6 (80-100) fL MCH 29.9 (25-34) pg MCHC 33.3 (32-36) g/dL RDW Std Deviation 46.0 (36.4-46.3) fL RDW Coeff of Bradford 14.0 (11.5-14.5) % Plt Count 193 (130-400) K/uL MPV 10.0 (7.4-10.4) fL Immature Gran % (Auto) 0.3 % Neut % (Auto) 79.1 % Lymph % (Auto) 12.2 % Coleman % (Auto) 6.7 % Eos % (Auto) 1.5 % Baso % (Auto) 0.2 % Neut # (Auto) 8.99 H (1.4-6.5) K/uL Lymph # (Auto) 1.39 (1.2-3.4) K/uL Coleman # (Auto) 0.76 H (0.11-0.59) K/uL Eos # (Auto) 0.17 (0-0.5) K/uL Baso # (Auto) 0.02 (0-0.2) K/uL Immature Gran # (Auto) 0.03 H (0.00-0.02) K/uL Sample Site L Radial POC pH 7.33 L (7.35-7.45) POC pCO2 40 (35-46) mmHg POC pO2 55 L (80-95) mmHg POC HCO3 21 (19-24) timbo/L POC Total CO2 22 L (24-31) mmol/L POC Base Excess -5.0 (-9-1.8) timbo/L POC ABG O2 Sat 86.0 L (90-95) % Geoff Test Pass O2 Delivery Device Ventilator POC O2 Rate 22 POC FiO2 60 % Tidal Volume 450 PEEP 10 Sodium 138 D (136-145) mmol/L Potassium 3.4 L (3.5-5.1) mmol/L Chloride 108 H (98-107) mmol/L Carbon Dioxide 23 (21-32) mmol/L Anion Gap 7.0 (3-11) BUN 20 H (7-18) mg/dl Creatinine 0.99 (0.6-1.4) mg/dl Est Cr Clr Drug Dosing 107.8 ml/min Est GFR ( Amer) 109.2 ml/min Est GFR (Non-Af Amer) 94.2 ml/min BUN/Creatinine Ratio 20.3 H (10-20) Glucose 135 H (70-99) mg/dl POC Glucose (70-99) mg/dl POC Glucose (other) (70-99) mg/dl Calcium 7.7 L (8.5-10.1) mg/dl Phosphorus 1.8 L (2.5-4.9) mg/dl Magnesium 2.2 (1.8-2.4) mg/dl 01/10/21 01/09/21 Range/Units 01:59 14:47 WBC (4.8-10.8) K/uL RBC (4.7-6.1) M/uL Hgb (14.0-18.0) g/dL Hct (42-52) % MCV (80-100) fL MCH (25-34) pg MCHC (32-36) g/dL RDW Std Deviation (36.4-46.3) fL RDW Coeff of Bradford (11.5-14.5) % Plt Count (130-400) K/uL MPV (7.4-10.4) fL Immature Gran % (Auto) % Neut % (Auto) % Lymph % (Auto) % Coleman % (Auto) % Eos % (Auto) % Baso % (Auto) % Neut # (Auto) (1.4-6.5) K/uL Lymph # (Auto) (1.2-3.4) K/uL Coleman # (Auto) (0.11-0.59) K/uL Eos # (Auto) (0-0.5) K/uL Baso # (Auto) (0-0.2) K/uL Immature Gran # (Auto) (0.00-0.02) K/uL Sample Site POC pH (7.35-7.45) POC pCO2 (35-46) mmHg POC pO2 (80-95) mmHg POC HCO3 (19-24) timbo/L POC Total CO2 (24-31) mmol/L POC Base Excess (-9-1.8) timbo/L POC ABG O2 Sat (90-95) % Geoff Test O2 Delivery Device POC O2 Rate POC FiO2 % Tidal Volume PEEP Sodium (136-145) mmol/L Potassium (3.5-5.1) mmol/L Chloride (98-107) mmol/L Carbon Dioxide (21-32) mmol/L Anion Gap (3-11) BUN (7-18) mg/dl Creatinine (0.6-1.4) mg/dl Est Cr Clr Drug Dosing ml/min Est GFR ( Amer) ml/min Est GFR (Non-Af Amer) ml/min BUN/Creatinine Ratio (10-20) Glucose (70-99) mg/dl POC Glucose 122 H (70-99) mg/dl POC Glucose (other) 163 H (70-99) mg/dl Calcium (8.5-10.1) mg/dl Phosphorus (2.5-4.9) mg/dl Magnesium (1.8-2.4) mg/dl Coding Level of Care Code Critical Care 1st 30-74 mins Diagnoses Aspiration into airway T17.908A Encephalopathy acute G93.40 TRAVIS (acute kidney injury) N17.9 Acute respiratory failure with hypoxia J96.01 Anxiety and depression F41.9; F32.9
[2021-01-10] MEDS ORDERED: POTASSIUM PHOSPHATE 24 MMOL in SODIUM CHLORIDE 0.9% 500 ML IV ONE (09:45)
[2021-01-10] MEDS ORDERED: MIDAZOLAM BOLUS FROM BAG IV PRN (10:07)
[2021-01-10] MEDS ORDERED: STAT IV Infusion **Titration per Protocol STA ×2 (10:07→11:39)
--- NOTE | 2021-01-10 10:49 | Procedure Note ---
Procedure Note Date of Service January 10, 2021 Note Procedure date: Noted above Procedure: fiberoptic bronchoscopy Pre-procedure indication: Acute hypoxic respiratory failure Post-procedure Diagnosis: same as above Prior to Procedure: Informed Consent: The risks, benefits, indications, potential complications, and alternatives were explained to the patient's mother and informed consent obtained. Attending Staff: Jaz Sanderson DO Resident/APC: Not applicable Skin Prep: Not applicable Anesthesia: Continuous infusion The identity of the patient was confirmed and a bedside time out was performed. Description of Procedure: Fiberoptic bronchoscopy was performed via endotracheal tube. Bronchioalveolar lavage serially of the right lower lobe was performed. Findings included: Diffusely erythematous airways positive progressive worsening of 3 aliquots of saline inserted into the right lower lobe, this is presumptively positive for diffuse alveolar hemorrhage Complications: None Specimens: Bronchial washings sent for culture and Gram stain, fungal elements, AFB stain and culture, cell count differential, cytology. Estimated blood loss: Zero Coding
[2021-01-10] MEDS ORDERED: PROPOFOL BOLUS FROM BAG IV PRN (11:39)
[2021-01-10] MEDS: methylPREDNISolone 125 MG in SYRINGE 0 ML IV SCH ×2 (12:08→20:31)
[2021-01-10] MEDS ORDERED: OPTIRAY 320 125ml IV ONE (12:38)
--- NOTE | 2021-01-10 13:27 | CT Scan Report ---
CT ANGIOGRAM OF THE CHEST CLINICAL HISTORY: Respiratory failure. COMPARISON STUDY: Chest x-ray dated 01/10/2021. TECHNIQUE: Following the IV administration of 120 cc of Optiray 320, CT angiogram of the chest was pe rformed from the upper abdomen to the thoracic inlet utilizing the pulmonary embolus protocol. Images are reviewed in the axial, sagittal, and coronal planes. 3-D MIPS images are created and assessed. I V contrast was administered without complication. A dose lowering technique was utilized adhering to the principles of ALARA. The examination is significant compromise by motion artifact, as well as st reak artifact from the arms which could not be elevated above the chest. CT DOSE: 811.50 mGy.cm FINDINGS: Thyroid: Imaged portions of the thyroid gland are normal in size and attenuation. Thoracic aorta: The thoracic aorta is normal in caliber and demonstrates standard 3-vessel arch anato my. No dissection is seen. Pulmonary vasculature: The pulmonary trunk is normal in caliber. There are no filling defects identif ied in main, lobar, or segmental pulmonary branches to suggest pulmonary embolus. Evaluation of the p eripheral branches is compromised by streak and motion. Heart: A left internal jugular central venous catheter is in place. The heart is normal in size and w ithout pericardial effusion. Lungs and pleural spaces: An endotracheal tube terminates above the misael. Secretions are noted in t he trachea and left mainstem bronchus. Evaluation of the lung parenchyma is degraded by motion artifa ct. There is dense airspace consolidation throughout the lower lobes. Milder patchy consolidation is seen throughout the upper lobes and in the right middle lobe. There are small pleural effusions. No p neumothorax is seen. Mediastinum: There is no mediastinal lymphadenopathy. Sandrita: Clear. Axillae: There is no axillary lymphadenopathy. Upper abdomen: An enteric tube extends below the diaphragm and the stomach. Partially visualized uppe r abdominal viscera is within normal limits. Skeletal structures: No lytic or blastic bony lesions are seen. IMPRESSION: 1. Significantly streak and motion compromised examination. 2. There is no evidence of pulmonary embolus in the main, lobar, or segmental pulmonary arteries. Nelda luation of the peripheral branches is compromised by streak and motion. 3. Extensive multifocal airspace consolidation is typical for pneumonia/aspiration pneumonitis. Clini romy correlation will be required and radiographic follow-up to resolution pneumonitis. Clinical porsha elation will be required and radiographic follow-up to resolution 4. Small pleural effusions. ACT 112: Negative or not required by law. Electronically signed by: Martin Maurer M.D. 01/10/2021 1:26 PM
[2021-01-10] MEDS: MIDAZOLAM HCL 125 MG/250 ML BAG IV SCH (14:12)
--- NOTE | 2021-01-10 15:05 | Hospitalist Progress Note ---
Date of Service January 10, 2021 Assessment & Plan (1) Respiratory failure: Plan: Patient is a 40-year-old male with history of anxiety/mood disorder, illicit drug abuse as per records and other medical problems presents from [facility] found to be unresponsive after receiving Ativan, Thorazine for agitation combative behavior while at psychiatric facility. Acute respiratory failure with hypoxia Diffuse alveolar hemorrhage Oversedation at psychiatric facility secondary to combativeness Agitation/Encephalopathy/Unresponsive Episode S/P Intubation S/P Bronchoscopy Aspiration -CT Head:No acute intracranial abnormality. -CXR:No acute cardiopulmonary abnormality. -CTA:There is no evidence of pulmonary embolus in the main, lobar, or segmental pulmonary arteries. Evaluation of the peripheral branches is compromised by streak and motion. Extensive multifocal airspace consolidation is typical for pneumonia/aspiration pneumonitis. Clinical correlation will be required and radiographic follow-up to resolution pneumonitis. Clinical correlation will be required and radiographic follow-up to resolution Small pleural effusions. -Continue vent support Consult Psychiatry when appropriate Appreciate [employer] help Continue clindamycin Started on Solu-Medrol Acute Kidney Injury Cr:1.6>1.25> 0.99 Received IV fluids Monitor renal function Avoid nephrotoxic agents as able Hypokalemia Hypophosphatemia Replace electrolytes as needed Monitor Anxiety/mood disorder Past tobacco abuse Resume home meds held for now DVT Px: Heparin SQ Code Status Full Code Admission and Anticipated Discharge Date Admission Date: January 09, 2021 Subjective Patient patient is seen and examined at bedside Bronchoscopy earlier today showing diffuse alveolar hemorrhage Remains intubated Febrile this morning Blood culture negative to date Review of Systems Review of Systems: Unobtainable due to endotracheal tube Physical Exam Physical Exam: Physical Exam: Vitals signs as noted above General Appearance:Moderately built and nourished, Intubated Head: normocephalic, Atraumatic Eyes: normal inspection Neck: supple, Trachea midline Respiratory/Chest: Normal breath sounds, CTA Cardiovascular: S1, S2, No murmur Abdomen/GI:Soft, Non tender, Bowel sounds present Extremities/Musculoskeletal:normal inspection, no edema Neurologic/Psych:Intubated and sedated Skin: normal color, warm Results & Data Results & Data ([facility]) Vital Signs (Past 12 Hours) Vital Signs Temp Pulse Resp BP Pulse Ox 01/10/21 10:30 73 10 L 91 01/10/21 07:25 72 22 98 01/10/21 05:55 22 01/10/21 04:55 38.1 C H 63 108/71 94 01/10/21 04:15 71 22 93 01/10/21 03:55 38.2 C H 68 100/60 92 Laboratory Results Short CBC 01/10/21 Range/Units 05:28 WBC 11.36 H (4.8-10.8) K/uL Hgb 12.3 L (14.0-18.0) g/dL Hct 36.9 L (42-52) % Plt Count 193 (130-400) K/uL BMP 01/10/21 05:28 Sodium 138 D Potassium 3.4 L Chloride 108 H Carbon Dioxide 23 BUN 20 H Creatinine 0.99 Glucose 135 H Calcium 7.7 L
[2021-01-11] MEDS: fentaNYL DRIP 1,250 MCG/250 ML BAG IV SCH ×2 (02:07→10:03)
[2021-01-11] MEDS: CLINDAMYCIN 900 MG in DEXTROSE 5% 50 ML IV SCH ×3 (04:26→20:37)
[2021-01-11] MEDS: methylPREDNISolone 125 MG in SYRINGE 0 ML IV SCH (04:26)
[2021-01-11] MEDS: MIDAZOLAM HCL 125 MG/250 ML BAG IV SCH (04:39)
[2021-01-11 04:59] LABS: Hematocrit (blood only) 31.7 % (42-52); Hemoglobin 10.7 g/dL (14.0-18.0); Immature Granulocytes # (auto) 0.02 K/uL (0.00-0.02); Immature Granulocytes % (auto) 0.3 %; Lymphocytes # (auto) 0.34 K/uL (1.2-3.4); Lymphocytes % (auto) 5.1 %; Mean Corpuscular Hemoglobin 29.9 pg (25-34); Mean Corpuscular Hgb Conc 33.8 g/dL (32-36); Mean Corpuscular Volume 88.5 fL (80-100); Mean Platelet Volume 10.4 fL (7.4-10.4); Monocytes # (auto) 0.16 K/uL (0.11-0.59); Monocytes % (auto) 2.4 %; Neutrophils # (auto) 6.09 K/uL (1.4-6.5); Neutrophils % (auto) 92.2 %; Platelet Count 142 K/uL (130-400); RDW Coefficient of Variation 13.9 % (11.5-14.5); RDW Standard Deviation 45.4 fL (36.4-46.3); Red Blood Count 3.58 M/uL (4.7-6.1); White Blood Count 6.61 K/uL (4.8-10.8)
[2021-01-11 05:03] LABS: iSTAT Allen Test Pass; iSTAT Arterial Blood Gas HCO3 23 meg/L (19-24); iSTAT Arterial Blood Gas pCO2 40 mmHg (35-46); iSTAT Arterial Blood Gas pH 7.36 (7.35-7.45); iSTAT Arterial Blood Gas pO2 74 mmHg (80-95); iSTAT Carbon Dioxide 24 mmol/L (24-31); iSTAT FiO2 40 %; iSTAT Site R Radial
[2021-01-11 05:41] LABS: BUN Creatinine Ratio 19.4 (10-20); Calcium 8.2 mg/dl (8.5-10.1); Creatinine Clr Calc Pharmacy 138.6 ml/min; Est GFR (African American) 130.6 ml/min; Est GFR (Non-African American) 112.7 ml/min; Magnesium 2.1 mg/dl (1.8-2.4); Phosphorus 2.7 mg/dl (2.5-4.9)
[2021-01-11] MEDS: HEPARIN SOD 5,000 UNIT/0.5 ML VIAL SQ SCH ×3 (05:56→20:44)
--- NOTE | 2021-01-11 07:22 | Critical Care Progress Note ---
Date of Service January 11, 2021 Assessment & Plan (1) Aspiration into airway: Plan: Reason Critically Ill: 40-year-old male w/ PMHx of severe anxiety and depression who presents to the ICU mechanically ventilated for acute hypoxic respiratory failure following a likely aspiration event which occurred at inpatient psych ([facility]). Intubated 01/09/21, extubated 01/11/21 ~8:50AM. Neuro - - Partially sedated, unable to assess CAM-ICU. Weaned off fentanyl Agitation/encephalopathypatient was [facility] and did [facility] and Thorazine -Weaned off mechanical ventilation and is currently on bipap 10/5 40%. Currently requiring Precedex for agitation; wean as tolerated. -Ammonia, BUN, and LFTs within normal limits -UDS thus far only positive for benzos, follow-up final result. EtOH negative. 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 QTc 461, acceptable. Cardiac - Hypotensionlikely sedation related, since resolved; off of phenylephrine x 18 hours -Hold antihypertensives Sinus tachycardia. Ecg rechecked, qtc 461. 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 Will give dose of IV Lasix later today if not hypotensive. ENDO - No history of diabetes or thyroid disease ICU hyperglycemic protocol HEME - H&H slight drop (Hb 12.3->10.7), monitor clinically and via CBC ID - Aspiration pneumonitis vs pneumoniaNo leukocytosis, procal negative, lactate negative. -Bronch gram stain: many wbcs, no organisms. Sputum gram stain: many polys, moderate gram pos cocci, rare gram pos bacilli. BC no growth x 48 hours. -UA unremarkable for infectious process -Continue clindamycin day 3 of 7; penicillin allergy -Afebrile since 01/10 evening LINES/IV ACCESS - Peripheral IVs DVT PROPHYLAXIS - SCDs, heparin 5000 q8 (2) Diffuse pulmonary alveolar hemorrhage: (3) Acute alteration in mental status: (4) TRAVIS (acute kidney injury): (5) Acute respiratory failure with hypoxia: (6) Pneumonitis: Admission and Anticipated Discharge Date Admission Date: January 09, 2021 Supervising Physician Co-Signing Physician Notes Dr. Alcala was the resident-physician during care of patient. I separately evaluated patient for ramirez portions of the history and the exam. I was present during the critical portion of medical decision making, and I discussed the case with the resident. I generally agree with the findings and plan except for any additions/exceptions noted. Patient seen and examined at bedside. He was on pressure support at time of examination He was getting good tidal volumes Constitutional: No acute distress HEENT: EOMI, PERRLA Respiratory system: Decreased air entry bilaterally, no wheeze, no rhonchi, positive crackles bilateral lower lobes CVS: S1-S2 positive, no murmurs or gallops Abdomen: Soft, nontender, nondistended, positive bowel sounds x4 Extremities: +2 pulses bilaterally radialis/ dorsalis pedis, no cyanosis, no edema Neuro: Following commands, breathing over the vent Psych: Restless as patient was on pressure support on weaning trial G/U: Positive Deal --Prophylaxis VTE: Heparin GI: Pepcid Lines: IJ, peripheral Diet: N.p.o. Plan: In/out: +1167, urine output 2300, patient is +8.9 L since coming to the hospital Trial of extubation today CT chest on admission personally reviewed. Seems like patient has dependent consolidative process with goals towards aspiration pneumonia Patient did have bronchoscopy done on 01/10/2021 which goes with [facility]. He was started on Solu-Medrol 125 mg every 8 hours. CAT scan does not go with the finding of diffuse alveolar hemorrhage. I will do decrease the Solu-Medrol to 40 mg on a daily basis Repeat EKG showed QTC 461 We will give a dose of Lasix. Patient has allergy to penicillin. We will continue with clindamycin for anaerobic coverage. Patient does have psychiatric history. We will try to get psychiatric consult as well after extubation I have personally spent 38 minutes of critical care time in the direct management of this patient. This is a life/limb threatening event. This includes time spent evaluating patient, direct bedside care, chart review, placing orders, interpretation of diagnostic studies, discussion with consultants, patient, and/or family members regarding treatment decisions, as well as other required patient management activities. This time is exclusive of all separately billable procedures, and teaching time and separate from and in addition to any other critical care service time. Subjective During my exam this morning, patient was sedated and intubated. No acute events overnight. Review of Systems Review of Systems: ROS limited as patient is sedated. + deal Physical Exam Physical Exam: Initial exam this morning: General: Partially sedated. HEENT: Atraumatic, normocephalic. EOMI Pulm: CTAB anteriorly and laterally, -wheezes, -rales, -rhonchi. Mechanical ventilation. No respiratory distress. Cardiac: Tachycardic rate, RR, -mrg. DP pulses 2+. No LE edema. Abdominal: Nontender, nondistended, soft. Integ: PIVs appropriate. Results & Data Results & Data ([facility]) Vital Signs (Past 12 Hours) Vital Signs Intermittent 90s HR. MAPs >65. Good sats. current hr 103. Temp Pulse Resp BP Pulse Ox 01/11/21 04:58 36.7 C 87 106/56 L 96 01/11/21 04:43 93 H 110/63 97 01/11/21 04:28 97 H 111/59 L 98 01/11/21 04:13 90 111/59 L 97 01/11/21 03:58 90 109/58 L 96 01/11/21 03:44 74 25 H 95 01/11/21 03:43 90 112/64 95 01/11/21 03:28 85 106/60 97 01/11/21 03:13 84 106/60 96 01/11/21 02:58 85 111/60 94 01/11/21 02:44 93 H 121/74 96 01/11/21 02:28 36.4 C L 100 H 120/78 99 01/11/21 02:13 36.4 C L 89 109/69 98 01/11/21 01:58 36.4 C L 84 102/64 98 01/11/21 01:43 36.4 C L 85 104/64 98 01/11/21 01:28 36.5 C 82 105/61 98 01/11/21 01:13 36.5 C 85 108/65 98 01/11/21 00:58 36.6 C 85 108/62 98 01/11/21 00:43 36.6 C 84 106/63 98 01/11/21 00:28 36.7 C 86 104/59 L 98 01/11/21 00:13 36.7 C 84 104/63 97 01/11/21 00:00 88 01/10/21 23:58 36.8 C 82 108/62 96 01/10/21 23:43 36.8 C 83 99/61 L 95 01/10/21 23:28 36.9 C 85 25 H 105/67 92 01/10/21 23:11 36.9 C 94 H 118/72 94 01/10/21 22:58 36.8 C 84 102/61 97 01/10/21 22:43 36.9 C 88 109/64 97 01/10/21 22:28 36.9 C 84 104/63 97 01/10/21 22:13 36.9 C 83 103/62 97 01/10/21 21:58 37.0 C 82 99/59 L 97 01/10/21 21:43 37.0 C 81 102/61 96 01/10/21 21:28 37.0 C 80 98/60 L 96 01/10/21 21:13 37.1 C 81 99/59 L 97 01/10/21 20:58 37.1 C 83 104/66 96 01/10/21 20:43 37.2 C 82 108/66 96 01/10/21 20:28 37.2 C 82 101/61 94 01/10/21 20:13 37.2 C 84 106/62 96 01/10/21 20:00 78 22 96 01/10/21 19:58 37.3 C 85 104/62 96 01/10/21 19:43 37.3 C 87 106/63 95 01/10/21 19:28 37.3 C 84 102/60 93 Laboratory Results wbc 11.36->6.61. Hb 12.3->10.7. ABG 7.33/40/55/21->7.36/40/74/23. Ca 7.7->8.2 alb unknown. legionella pending. Cultures (blood, bronch, sputum) pending, see assessment and plan. CBC 01/11/21 Range/Units 04:33 WBC 6.61 (4.8-10.8) K/uL RBC 3.58 L (4.7-6.1) M/uL Hgb 10.7 L (14.0-18.0) g/dL Hct 31.7 L (42-52) % Plt Count 142 (130-400) K/uL Neut # (Auto) 6.09 (1.4-6.5) K/uL Lymph # (Auto) 0.34 L (1.2-3.4) K/uL [place] # (Auto) 0.16 (0.11-0.59) K/uL Eos # (Auto) 0.00 (0-0.5) K/uL Baso # (Auto) 0.00 (0-0.2) K/uL Comprehensive Metabolic Panel 01/11/21 Range/Units 04:33 Sodium 138 (136-145) mmol/L Potassium 4.0 D (3.5-5.1) mmol/L Chloride 107 (98-107) mmol/L Carbon Dioxide 24 (21-32) mmol/L BUN 15 (7-18) mg/dl Creatinine 0.77 (0.6-1.4) mg/dl Glucose 118 H (70-99) mg/dl Calcium 8.2 L (8.5-10.1) mg/dl Intake and Output 01/10/21 01/11/21 01/11/21 22:59 06:59 14:59 Intake Total 1455.15 / 3265.904 329.233 / 3265.904 230.7 / 230.7 Output Total 1300 / 2300 1000 / 2300 700 / 700 Balance 155.15 / 965.904 -670.767 / 965.904 -469.3 / -469.3 Intake: IV 1455.15 / 3265.904 329.233 / 3265.904 230.7 / 230.7 Clindamycin 900 mg In Dextrose 56 / 168 56 / 168 5% 50 ml @ 112 mls/hr IV Q8H [facility] Rx#:[id number] Midazolam HCl 125 mg In 250 ml 58.2 / 153.6 95.4 / 153.6 44.2 / 44.2 @ 3 MG/HR 6 mls/hr IV .[id number] [facility] Rx#:[id number] Phenylephrine HCl 40 mg In 574.20 / 1582.20 Dextrose 5% 500 ml @ 0 MCG/KG/ MIN IV .Q0M [facility] Rx#:[id number] Potassium Phosphate 24 mmol In 508 / 508 Sodium Chloride 0.9% 500 ml @ 88 mls/hr IV ONE ONE Rx#: [id number] fentaNYL DRIP 1,250 mcg In 250 258.75 / 676.583 177.833 / 676.583 186.5 / 186.5 ml @ 75 MCG/HR 15 mls/hr IV . [id number] [facility] Rx#:[id number] Output: Urine Amount (Catheter) 1300 / 2300 1000 / 2300 300 / 300 Deal/Indwelling 1300 / 2300 1000 / 2300 300 / 300 Gastric Drainage 400 / 400 Left Nare Nasogastric 400 / 400 Other: Weight 87.3 kg Weight Measurement Method Built in [facility] Diagnostic Findings 01/10 CTA neg for PE. "Extensive multifocal airspace consolidation is typical for pneumonia/aspiration pneumonitis." Chest X-Ray 01/11/21 07:00 XR chest 1V portable CLINICAL HISTORY: Resp failure COMPARISON STUDY: January 10, 2021 at 6:41 hours FINDINGS: No pneumothorax. No pleural effusion. Mixed hazy and reticular nodular opacities are again seen in bilateral perihilar region, not significantly changed since recent prior. Overall evaluation is slightly limited due to overlying EKG wires Cardiomediastinal silhouette is within normal limits in size. Bilateral jose are prominent. Mild pulmonary vascular congestion is seen.. Osseous structures: unremarkable Tip of endotracheal tube is projecting 2.9 cm above misael. Stable position of gastric tube and left IJ central venous catheter. IMPRESSION: 1. Stable multifocal bilateral airspace opacities in predominantly central distribution and pulmonary vascular congestion which could represent multifocal pneumonia or/and pulmonary edema. Findings are stable since prior. Opacities are better visualized during CT of the chest performed on January 10, 2021. 2. Support apparatus as above. ACT 112: Negative or not required by law. The above report was generated using voice recognition software. It may contain grammatical, syntax or spelling errors. Electronically signed by: Leslye Browning DO 01/11/2021 8:26 AM Resident Activity Tracking Resident Involvement: Resident Care Provided Care Provided: Adult Hospital Medicine
--- NOTE | 2021-01-11 08:27 | XRay Report ---
XR chest 1V portable CLINICAL HISTORY: Resp failure COMPARISON STUDY: January 10, 2021 at 6:41 hours FINDINGS: No pneumothorax. No pleural effusion. Mixed hazy and reticular nodular opacities are again seen in bilateral perihilar region, not signific antly changed since recent prior. Overall evaluation is slightly limited due to overlying EKG wires Cardiomediastinal silhouette is within normal limits in size. Bilateral jose are prominent. Mild pulmonary vascular congestion is seen.. Osseous structures: unremarkable Tip of endotracheal tube is projecting 2.9 cm above misael. Stable position of gastric tube and left IJ central venous catheter. IMPRESSION: 1. Stable multifocal bilateral airspace opacities in predominantly central distribution and pulmonar y vascular congestion which could represent multifocal pneumonia or/and pulmonary edema. Findings are stable since prior. Opacities are better visualized during CT of the chest performed on December. 2. Support apparatus as above. ACT 112: Negative or not required by law. The above report was generated using voice recognition software. It may contain grammatical, syntax o r spelling errors. Electronically signed by: Leslye Browning DO 01/11/2021 8:26 AM
[2021-01-11] MEDS ORDERED: STAT IV Infusion **Titration per Protocol STA (08:59)
[2021-01-11] MEDS: propofoL 1,000 MG/100 ML VIAL IV SCH (09:03)
[2021-01-11] MEDS: DEXMEDETOMIDINE HCL 200 MCG in SODIUM CHLORIDE 0.9% 48 ML IV SCH ×4 (09:18→21:11)
[2021-01-11] MEDS: THIAMINE HCL 100 MG in SYRINGE 9 ML IV SCH (09:20)
[2021-01-11] MEDS: FAMOTIDINE 20 MG in SYRINGE 3 ML IV SCH ×2 (09:20→20:37)
[2021-01-11] MEDS: FOLIC ACID 1 MG in SYRINGE 9.8 ML IV SCH (09:20)
--- NOTE | 2021-01-11 14:48 | Hospitalist Progress Note ---
Date of Service January 11, 2021 Assessment & Plan (1) Respiratory failure: Plan: Patient is a 40-year-old male with history of anxiety/mood disorder, illicit drug abuse as per records and other medical problems presents from [facility] found to be unresponsive after receiving Ativan, Thorazine for agitation combative behavior while at psychiatric facility. 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 -CXR:No acute cardiopulmonary abnormality. -CTA:There is no evidence of pulmonary embolus in the main, lobar, or segmental pulmonary arteries. Evaluation of the peripheral branches is compromised by streak and motion. Extensive multifocal airspace consolidation is typical for pneumonia/aspiration pneumonitis. Clinical correlation will be required and radiographic follow-up to resolution pneumonitis. Clinical correlation will be required and radiographic follow-up to resolution Small pleural effusions. -Extubated on 01/11/21 Consulted Psychiatry Appreciate Dental Assistant help Continue clindamycin, Solu-Medrol Acute Kidney Injury Cr:1.6>1.25> 0.99> 0.77 Received IV fluids Monitor renal function Avoid nephrotoxic agents as able Hypokalemia Hypophosphatemia Replace electrolytes as needed Monitor Anxiety/mood disorder Past tobacco abuse Resume home meds as able DVT Px: Heparin SQ Code Status Full Code Admission and Anticipated Discharge Date Admission Date: January 09, 2021 Subjective Patient is seen and examined at bedside Extubated this morning Patient unable to provide much history Still on Precedex drip Review of Systems Review of Systems: All systems reviewed & are unremarkable except as noted in Subjective Physical Exam Physical Exam: Physical Exam: Vitals signs as noted above General Appearance:Moderately built and nourished Head: normocephalic, Atraumatic Eyes: normal inspection, EOMI Neck: supple, Trachea midline Respiratory/Chest: Normal breath sounds, CTA Cardiovascular: S1, S2, No murmur Abdomen/GI:Soft, Non tender, Bowel sounds present Extremities/Musculoskeletal:normal inspection, no edema Neurologic/Psych:Grossly no focal deficits Skin: normal color, warm Results & Data Results & Data ([facility]) Vital Signs (Past 12 Hours) Vital Signs Temp Pulse Resp BP Pulse Ox 01/11/21 11:59 37.1 C 95 H 133/63 93 01/11/21 10:58 37.2 C 103 H 118/62 97 01/11/21 09:58 37.3 C 100 H 123/73 96 01/11/21 08:58 37.4 C 109 H 116/66 92 01/11/21 08:55 108 H 19 93 01/11/21 08:06 101 H 23 96 01/11/21 08:00 94 H 01/11/21 07:58 37.2 C 108 H 123/71 97 01/11/21 06:58 37.0 C 99 H 125/71 98 01/11/21 04:58 36.7 C 87 106/56 L 96 01/11/21 04:43 93 H 110/63 97 01/11/21 04:28 97 H 111/59 L 98 01/11/21 04:13 90 111/59 L 97 01/11/21 03:58 90 109/58 L 96 01/11/21 03:44 74 25 H 95 01/11/21 03:43 90 112/64 95 01/11/21 03:28 85 106/60 97 01/11/21 03:13 84 106/60 96 01/11/21 02:58 85 111/60 94 01/11/21 02:44 93 H 121/74 96 Laboratory Results Short CBC 01/11/21 Range/Units 04:33 WBC 6.61 (4.8-10.8) K/uL Hgb 10.7 L (14.0-18.0) g/dL Hct 31.7 L (42-52) % Plt Count 142 (130-400) K/uL BMP 01/11/21 04:33 Sodium 138 Potassium 4.0 D Chloride 107 Carbon Dioxide 24 BUN 15 Creatinine 0.77 Glucose 118 H Calcium 8.2 L
[2021-01-11] MEDS ORDERED: HALOPERIDOL LACTATE 5 MG/ML 1 ML VIAL IM STA (15:39)
[2021-01-11] MEDS ORDERED: HALOPERIDOL LACTATE 5 MG/ML 1 ML VIAL ONE (15:39)
--- NOTE | 2021-01-11 16:21 | Communication Note ---
Date of Service: January 11, 2021 Patient is a 40-year-old male who was transferred from the [facility] after a period of decreased responsiveness. Upon evaluation patient was found to have a pneumonia requiring IV antibiotics. Currently he is in the ICU, agitated, delirious, and requesting to leave AMA. At this time, patient does not have capacity to leave AMA. He was unable to s floyd the date or the time nor was able to explain why he was originally at the [facility]. Unclear if patient has an underlying psychiatric disorder, we will continue to elucidate this information and potentially seek out 302 warrant to hold patient against as well for psychiatric treatment. At this time, patient still necessitates medical treatment, and his agitated delirium may negatively impact this. Case discussed with ICU doctor who at this time feels comfortable increasing the patient's Precedex to achieve the necessary amount of sedation to keep the patient calm. Liaison team spoke with the patient's mother, who feels the patient is acutely mentally ill and does not feel safe with him leaving the hospital. Plan: Patient is not free to leave the hospital. Patient does not have capacity to sign out AMA. Patient will likely require 302 warrant. Discussed with ICU DrRobby short-term plan of using Precedex to calm the patient down and continue medical treatment. When acceptable, please use Olanzapine 5 mg IV or IM every 2 hours as needed for agitation. Max daily dose approximately 20-30 mg. Please do not use Haldol as patient currently experiencing prolonged QTC. Psychiatry service will continue to follow.
[2021-01-11] MEDS ORDERED: LORazepam 3 MG/6 ML VIAL IV PRN (17:53)
--- NOTE | 2021-01-11 17:56 | Billing Data ---
Date of Service January 11, 2021 Coding Level of Care Code Critical Care 1st 30-74 mins Time Spent (min) 38
[2021-01-11] MEDS ORDERED: traZODone HCL 50 MG TAB PO SCH (18:00)
[2021-01-11] MEDS ORDERED: FUROSEMIDE 20 MG in SYRINGE 0 ML IV ONE (18:15)
[2021-01-12] MEDS: DEXMEDETOMIDINE HCL 400 MCG in 0.9 % SODIUM CHLORIDE 96 ML IV SCH ×2 (00:12→09:35)
[2021-01-12] MEDS: CLINDAMYCIN 900 MG in DEXTROSE 5% 50 ML IV SCH (03:58)
[2021-01-12 05:17] LABS: Eosinophils # (auto) 0.01 K/uL (0-0.5); Eosinophils % (auto) 0.1 %; Hematocrit (blood only) 31.8 % (42-52); Hemoglobin 10.9 g/dL (14.0-18.0); Immature Granulocytes # (auto) 0.02 K/uL (0.00-0.02); Immature Granulocytes % (auto) 0.3 %; Lymphocytes # (auto) 0.45 K/uL (1.2-3.4); Lymphocytes % (auto) 5.6 %; Mean Corpuscular Hemoglobin 29.6 pg (25-34); Mean Corpuscular Hgb Conc 34.3 g/dL (32-36); Mean Corpuscular Volume 86.4 fL (80-100); Mean Platelet Volume 10.3 fL (7.4-10.4); Monocytes % (auto) 7.5 %; Neutrophils # (auto) 6.91 K/uL (1.4-6.5); Neutrophils % (auto) 86.5 %; Platelet Count 158 K/uL (130-400); RDW Coefficient of Variation 13.3 % (11.5-14.5); RDW Standard Deviation 41.9 fL (36.4-46.3); Red Blood Count 3.68 M/uL (4.7-6.1); White Blood Count 7.99 K/uL (4.8-10.8)
[2021-01-12] MEDS: HEPARIN SOD 5,000 UNIT/0.5 ML VIAL SQ SCH ×3 (05:24→22:59)
[2021-01-12 05:52] LABS: BUN Creatinine Ratio 26.8 (10-20); Calcium 8.3 mg/dl (8.5-10.1); Creatinine Clr Calc Pharmacy 138.6 ml/min; Est GFR (African American) 130.6 ml/min; Est GFR (Non-African American) 112.7 ml/min; Potassium 3.7 mmol/L (3.5-5.1)
--- NOTE | 2021-01-12 07:09 | Critical Care Progress Note ---
Date of Service January 12, 2021 Assessment & Plan (1) Aspiration into airway: Plan: Reason Critically Ill: 40-year-old male w/ PMHx of severe anxiety and depression who presents to the ICU mechanically ventilated for acute hypoxic respiratory failure following a likely aspiration event which occurred at inpatient psych ([facility]). Intubated 01/09/21, extubated 01/11/21 ~8:50AM. 01/12/21: mentation improved, restraints removed. Neuro - - CAM ICU negative (negative for inattention) Agitation/encephalopathypatient was [facility] to [facility] and did receive At[facility] and Thorazine -Weaned off mechanical ventilation 01/11/21. Currently weaning off Precedex which was started for agitation. -Ammonia, BUN, and LFTs within normal limits -UDS thus far only positive for benzos, follow-up final result. EtOH negative. 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 QTc 461. s/p Haldol 5mg IM x1 on 01/11/21 - psych recommends against further use of Haldol because of the QTc. Olanzapine IV/IM as needed for agitation, which patient has not needed thus far Anxiety/depression - restarting home aripiprazole 10 mg daily today - continue holding venlafaxine because will restart home meds in stepwise fashion - home trazadone qhs Cardiac - Hypotensionlikely sedation related, since resolved -Hold antihypertensives Sinus tachycardia. Ecg rechecked, qtc 461. 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 GI - advance diet as tolerated, currently clears->full liquids famotidine twice daily, IV changed to PO RENAL/LYTES - AKIresolved hypokalemia, repleted Non-anion gap metabolic acidosis, presumed resolved, no further blood gas collected - Deal removed. Patient voiding spontaneously. 24 hr 567 in 2700 out. cumulative 12.7 in 6 out. Patient had refused Lasix yesterday. Good UOP overnight, so defer Lasix today. ENDO - No history of diabetes or thyroid disease ICU hyperglycemic protocol HEME - H&H stable, monitor ID - Aspiration pneumonitis vs pneumoniaNo leukocytosis, procal negative, lactate negative. -Bronch gram stain: many wbcs, no organisms. Sputum gram stain: many polys, moderate gram pos cocci, rare gram pos bacilli. BC no growth x 48 hours. -UA unremarkable for infectious process -Continue clindamycin day 4 of 10; penicillin allergy - course extended from 7 to total of 10 days -Afebrile since 01/10 evening LINES/IV ACCESS -Peripheral IVs DVT PROPHYLAXIS -SCDs, heparin 5000 q8 CODE: full dispo: stable for downgrade from ICU to med/surg (2) Diffuse pulmonary alveolar hemorrhage: (3) Acute alteration in mental status: (4) TRAVIS (acute kidney injury): (5) Acute respiratory failure with hypoxia: (6) Pneumonitis: Admission and Anticipated Discharge Date Admission Date: January 09, 2021 Supervising Physician Co-Signing Physician Notes Dr. Alcala was the resident-physician during care of patient. I separately evaluated patient for ramirez portions of the history and the exam. I was present during the critical portion of medical decision making, and I discussed the case with the resident. I generally agree with the findings and plan except for any additions/exceptions noted. Patient seen and examined at bedside. No acute distress, no adverse events ove rnight. Patient was on Precedex 0. 4 at the time of examination He was saturating 90% on room air. Denied any chest pain, no shortness of breath, no headache, no nausea, no vomiting. Was answering all the questions appropriately. Denied any hallucinations. Constitutional: No acute distress HEENT: EOMI, PERRLA Respiratory system: Decreased air entry bilaterally, no wheeze, no rhonchi, positive crackles bilateral lower lobes CVS: S1-S2 positive, no murmurs or gallops Abdomen: Soft, nontender, nondistended, positive bowel sounds x4 Extremities: +2 pulses bilaterally radialis/ dorsalis pedis, no cyanosis, no edema Neuro: Awake alert oriented x3 Psych: Normal mood and affect G/U: No Deal --Prophylaxis VTE: Heparin GI: Pepcid Lines: Peripheral Diet: Regular Plan: In/out: -2259, urine output 2700 Patient clinically doing much better. Will titrate off Precedex in the next couple of hours We will start aripiprazole on a daily basis Continue with trazodone nightly Follow-up psychiatry recommendation. Physical therapy will be helpful for the patient Give total 10 days of antibiotics Continue with incentive spirometry and flutter valve. Patient hemodynamically stable to be sent out of the ICU. Please note the above document was generated using voice recognition software. It may contain grammatical, syntax or spelling errors.Any formal questions or concerns about the content, text or information contained within the body of this dictation should be directly addressed to the provider for clarification. Subjective Per nursing, slight agitation this AM, otherwise no acute events overnight. He has been on Precedex. He is feeling much better this morning. Denies confusion. He ate breakfast. + mild anxiety. Review of Systems Review of Systems: Constitutional: Denies fever, chills Eyes: Denies blurry vision Cardiovascular: Denies chest pain Respiratory: Denies shortness of breath Gastrointestinal: Denies abdominal pain, nausea, vomiting, constipation, diarrhea Genitourinary: Denies urinary symptoms including dysuria Musculoskeletal: Denies weakness, muscle aches/pain, joint aches/pain Neurological: Denies headache, numbness, tingling, focal weakness Physical Exam Physical Exam: General: A&Ox3. NAD. Cooperative. HEENT: Atraumatic, normocephalic. EOMI. PERRL. Pulm: CTAB. -wheezes, -rales, -rhonchi. No crackles. No respiratory distress. Cardiac: RRR, -mrg. Radial pulses intact and symmetrical. Abdominal: Nontender, nondistended, soft. Psych: Appropriate affect, cooperative : no deal Results & Data Results & Data ([facility]) Vital Signs (Past 12 Hours) Vital Signs MAPs >65, several in low 90s /~60. Desat to 89, on ? Temp Pulse BP Pulse Ox 01/12/21 05:28 36.6 C 74 92/59 L 89 L 01/12/21 04:28 66 107/75 94 01/12/21 03:28 75 105/71 93 01/12/21 02:28 74 109/70 93 01/12/21 01:28 73 92/69 L 93 01/12/21 00:28 69 96/64 L 92 01/11/21 23:28 76 91/58 L 91 01/11/21 22:28 72 95/65 L 91 01/11/21 22:24 36.5 C 01/11/21 21:31 82 121/59 L 89 L 01/11/21 21:29 90 66/43 L 89 L 01/11/21 20:28 83 108/67 88 L 01/11/21 19:31 111 H Laboratory Results No leukocytosis. Hb stable 10.9. K 3.7. acid fast bronch pending. 01/09 BC pe nding 48 hrs NG. No new imaging. 01/12/21 05:02 01/12/21 05:02 Abnormal lab results 01/11/21 01/12/21 01/12/21 Range/Units 12:02 05:02 05:02 RBC 3.68 L (4.7-6.1) M/uL Hgb 10.9 L (14.0-18.0) g/dL Hct 31.8 L (42-52) % Neut # (Auto) 6.91 H (1.4-6.5) K/uL Lymph # (Auto) 0.45 L (1.2-3.4) K/uL Mcdowell # (Auto) 0.60 H (0.11-0.59) K/uL Chloride 111 H (98-107) mmol/L BUN 21 H (7-18) mg/dl BUN/Creatinine Ratio 26.8 H (10-20) Glucose 118 H (70-99) mg/dl POC Glucose 104 H (70-99) mg/dl Calcium 8.3 L (8.5-10.1) mg/dl Resident Activity Tracking Resident Involvement: Resident Care Provided Care Provided: Adult [facility]
[2021-01-12] MEDS: methylPREDNISolone 40 MG in SYRINGE 0 ML IV SCH (07:46)
[2021-01-12] MEDS: FOLIC ACID 1 MG in SYRINGE 9.8 ML IV SCH (07:46)
[2021-01-12] MEDS: THIAMINE HCL 100 MG in SYRINGE 9 ML IV SCH (07:46)
[2021-01-12] MEDS: FAMOTIDINE 20 MG in SYRINGE 3 ML IV SCH (07:48)
[2021-01-12] MEDS: POTASSIUM CHLORIDE / WTR 10 MEQ/100 ML PLCT IV SCH ×2 (09:35→09:36)
--- NOTE | 2021-01-12 09:56 | Procedure Note ---
Procedure Note Date of Service January 12, 2021 Coding
[2021-01-12] MEDS: CLINDAMYCIN HCL 150 MG CAP PO SCH ×3 (11:11→23:04)
[2021-01-12] MEDS: ARIPiprazole 10 MG TAB PO SCH (11:11)
[2021-01-12] MEDS ORDERED: methylPREDNISolone 40 MG in SYRINGE 0 ML IV SCH (12:00)
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
--- NOTE | 2021-01-12 15:12 | Billing Data ---
Date of Service January 12, 2021 Coding Level of Care Code 23980 Subseq Hosp Care Lvl 3
[2021-01-12 15:37] LABS: 7-Aminoclonaz, Confirm NEGATIVE ng/mL (<25); Hydro-Alp Ur, GC/MS NEGATIVE ng/mL (<25); Hydroxyethylflurazepam, Conf NEGATIVE ng/mL (<50); Hydroxymidazolam Ur, GC/MS 1080 ng/mL (<50); Hydroxytriazolam NEGATIVE ng/mL (<50); Lorazepam, Ur GC/MS 1810 ng/mL (<50); Nordiazepam, Confirm NEGATIVE ng/mL (<50); Oxazepam Ur, GC/MS NEGATIVE ng/mL (<50); Temazepam, Confirm NEGATIVE ng/mL (<50)
--- NOTE | 2021-01-12 16:00 | Hospitalist Progress Note ---
Date of Service January 12, 2021 Assessment & Plan (1) Respiratory failure: Plan: Patient is a 40-year-old male with history of anxiety/mood disorder, illicit drug abuse as per records and other medical problems presents from [facility] found to be unresponsive after receiving Ativan, Thorazine for agitation combative behavior while at psychiatric facility. 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 -CXR:No acute cardiopulmonary abnormality. -CTA:There is no evidence of pulmonary embolus in the main, lobar, or segmental pulmonary arteries. Evaluation of the peripheral branches is compromised by streak and motion. Extensive multifocal airspace consolidation is typical for pneumonia/aspiration pneumonitis. Clinical correlation will be required and radiographic follow-up to resolution pneumonitis. Clinical correlation will be required and radiographic follow-up to resolution Small pleural effusions. -Extubated on 01/11/21 Appreciated Psychiatry Input Appreciate Ad Trafficker help Continue clindamycin Day 07/25 Needs follow-up with psychiatry upon discharge Encephalopathy resolved Weaned off of Precedex Will discontinue Solumedrol after a dose on 01/13/21 Acute Kidney Injury Cr:1.6>1.25> 0.99> 0.77 Received IV fluids Monitor renal function Avoid nephrotoxic agents as able Hypokalemia Hypophosphatemia Replace electrolytes as needed Monitor Anxiety/mood disorder Past tobacco abuse Resumed Ariprazole, Trazodone Plan to resume venlafaxine as able DVT Px: Heparin SQ Code Status Full Code Admission and Anticipated Discharge Date Admission Date: January 09, 2021 Subjective Patient is seen and examined States feeling much better today Denies any chest pain, shortness of breath, dizziness, nausea, abdominal pain Offers no other complaints Discussed with ICU team. On Precedex drip today Review of Systems Review of Systems: All systems reviewed & are unremarkable except as noted in Subjective Physical Exam Physical Exam: Physical Exam: Vitals signs as noted above General Appearance:Moderately built and nourished Head: normocephalic, Atraumatic Eyes: normal inspection, EOMI Neck: supple, Trachea midline Respiratory/Chest: Normal breath sounds, CTA Cardiovascular: S1, S2, No murmur Abdomen/GI:Soft, Non tender, Bowel sounds present Extremities/Musculoskeletal:normal inspection, no edema Neurologic/Psych:Grossly no focal deficits Skin: normal color, warm Results & Data Results & Data ([facility]) Vital Signs (Past 12 Hours) Vital Signs Temp Pulse BP Pulse Ox 01/12/21 11:00 36.8 C 85 139/88 92 01/12/21 10:31 97 H 92 01/12/21 09:28 75 117/74 91 01/12/21 08:28 62 85/63 L 93 01/12/21 07:28 63 95/63 L 89 L 01/12/21 05:28 36.6 C 74 92/59 L 89 L 01/12/21 04:28 66 107/75 94 Laboratory Results Short CBC 01/12/21 Range/Units 05:02 WBC 7.99 (4.8-10.8) K/uL Hgb 10.9 L (14.0-18.0) g/dL Hct 31.8 L (42-52) % Plt Count 158 (130-400) K/uL BMP 01/12/21 05:02 Sodium 143 Potassium 3.7 Chloride 111 H Carbon Dioxide 26 BUN 21 H Creatinine 0.77 Glucose 118 H Calcium 8.3 L
[2021-01-12] MEDS: FAMOTIDINE 20 MG TAB PO SCH (20:45)
[2021-01-12] MEDS ORDERED: traZODone HCL 50 MG TAB PO SCH (21:00)
--- NOTE | 2021-01-12 22:40 | Electrocardiogram Report ---
Test Reason : Blood Pressure : / mmHG Vent. Rate : 101 BPM Atrial Rate : 101 BPM P-R Int : 136 ms QRS Dur : 110 ms QT Int : 356 ms P-R-T Axes : 081 005 050 degrees QTc Int : 461 ms Sinus tachycardia Otherwise normal ECG When compared with ECG of 08-JAN-2021 22:35, No significant change was found Confirmed by Aristides Gates ([id number] on 01/12/2021 10:40:00 PM Referred By: Amelie He Confirmed By:Aristides Gates
[2021-01-13] MEDS: CLINDAMYCIN HCL 150 MG CAP PO SCH ×2 (05:34→12:26)
[2021-01-13] MEDS: HEPARIN SOD 5,000 UNIT/0.5 ML VIAL SQ SCH (05:36)
[2021-01-13] MEDS ORDERED: ACETAMINOPHEN 325 MG TAB PO PRN (06:44)
[2021-01-13] MEDS: FAMOTIDINE 20 MG TAB PO SCH (08:00)
[2021-01-13] MEDS: methylPREDNISolone 40 MG in SYRINGE 0 ML IV SCH (08:01)
[2021-01-13] MEDS: ARIPiprazole 10 MG TAB PO SCH (08:01)
[2021-01-13 08:09] LABS: Hematocrit (blood only) 37.7 % (42-52); Hemoglobin 12.9 g/dL (14.0-18.0); Mean Corpuscular Hemoglobin 30.2 pg (25-34); Mean Corpuscular Hgb Conc 34.2 g/dL (32-36); Mean Corpuscular Volume 88.3 fL (80-100); Mean Platelet Volume 10.2 fL (7.4-10.4); Platelet Count 208 K/uL (130-400); RDW Coefficient of Variation 13.5 % (11.5-14.5); RDW Standard Deviation 43.7 fL (36.4-46.3); Red Blood Count 4.27 M/uL (4.7-6.1); White Blood Count 7.96 K/uL (4.8-10.8)
[2021-01-13 08:46] LABS: BUN Creatinine Ratio 12.1 (10-20); Calcium 8.6 mg/dl (8.5-10.1); Creatinine Clr Calc Pharmacy 122.6 ml/min; Est GFR (African American) 124.2 ml/min; Est GFR (Non-African American) 107.2 ml/min; Phosphorus 2.3 mg/dl (2.5-4.9); Potassium 3.2 mmol/L (3.5-5.1)
[2021-01-13] MEDS ORDERED: FOLIC ACID 1 MG TAB PO SCH (09:00)
[2021-01-13] MEDS ORDERED: THIAMINE HCL 100 MG TAB PO SCH (09:00)
[2021-01-13] MEDS ORDERED: BENZTROPINE MESYLATE 0.5 MG TAB PO SCH (10:00)
--- NOTE | 2021-01-13 10:02 | Communication Note ---
Date of Service: January 13, 2021 Rounded on patient this running. Patient continues to appear well. He continues to deny any suicidal or homicidal ideation. No psychosis reported or shown. Patient was given a release for [facility] where he was interested in obtaining outpatient rehab services. Patient signed a release that problem and remains committed to his sobriety. Patient did ask for Cogentin to be added to his regimen as it has been helpful in the past 1 taking Abilify. Plan: Psychiatry to set up outpatient rehab for patient. Cogentin 0.5 mg twice daily, first dose now, added to patient's regimen.
[2021-01-13] MEDS ORDERED: POTASSIUM CHLORIDE CRTAB 20 MEQ TABCR PO STA (12:47)
--- NOTE | 2021-01-13 12:49 | Hospitalist Progress Note ---
Date of Service January 13, 2021 Assessment & Plan (1) Respiratory failure: Plan: Patient is a 40-year-old male with history of anxiety/mood disorder, illicit drug abuse as per records and other medical problems presents from [facility] found to be unresponsive after receiving Ativan, Thorazine for agitation combative behavior while at psychiatric facility. 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 -CXR:No acute cardiopulmonary abnormality. -CTA:There is no evidence of pulmonary embolus in the main, lobar, or segmental pulmonary arteries. Evaluation of the peripheral branches is compromised by streak and motion. Extensive multifocal airspace consolidation is typical for pneumonia/aspiration pneumonitis. Clinical correlation will be required and radiographic follow-up to resolution pneumonitis. Clinical correlation will be required and radiographic follow-up to resolution Small pleural effusions. -Extubated on 01/11/21 Appreciated Psychiatry Input Appreciate In Home Sales Consultant help Continue clindamycin Day 07/25 Needs follow-up with psychiatry upon discharge Encephalopathy resolved Weaned off of Precedex Will discontinue Solumedrol after a dose on 01/13/2101/13 respiratory status stable discharge on Augmentin BID x 5 days Acute Kidney Injury Cr:1.6>1.25> 0.99> 0.77 Received IV fluids Monitor renal function Avoid nephrotoxic agents as able 01/13 stable Hypokalemia Hypophosphatemia Replace electrolytes as needed Monitor 01/13 replace repeat K and Ph on ff up with PCP Anxiety/mood disorder Past tobacco abuse Resumed Ariprazole, Trazodone 01/[address] Rosenthal recommend to d/c home continue Abilify, Trazodone, Cogentin HOLD Effexor outpatient ff up with Teetee Alford, outpatient Rehab to be arranged by Psych service DVT Px: Heparin SQ Code Status Full Code plan of care discussed with patient in detail and at length all questions answered he is understanding, agreeable, comfortable with the plan of care Admission and Anticipated Discharge Date Admission Date: January 09, 2021 Subjective ff up for respiratory failure, etc seen with CALEB Moscoso at bedside thru whole encounter oriented x 3, calm, cooperative, pleasant states he feels much better overall denies shortness of breath, chest pain, chills, dizziness states his mood is also much better, denies anxiety, depression, suicidal ideation no other symptoms declining to return to the [facility] states he would rather ff up with his [facility] psychiatrist, [employer] counselor and also do outpatient Substance Abuse rehab states he lives at home with his girlfriend, and his mother will be checking on him frequently as well Review of Systems Review of Systems: all noted and negative except for above Physical Exam Physical Exam: General- oriented x 3, not in distress, speaks in sentences with no effort or accessory muscle use Head- atraumatic Eyes- PERRL, EOMI, anicteric ENT- oropharynx clear Neck- supple, no JVD, no adenopathy, no thyromegaly; carotids +2/2, no bruits appreciated Lungs- clear to auscultation bilaterally, no rales/wheezes Heart- normal rate, regular rhythm; no murmur, no gallop, no rub appreciated Abdomen- normal bowel sounds, nondistended, soft, nontender, no masses or hepatosplenomegaly Extremities- no pretibial edema, no calf tenderness; peripheral pulses intact Neuro- alert, oriented x 3; CN 2-12 grossly intact; motor 5/5 bilaterally;sensation 100% on all extremities; no other gross focal neurologic deficits Skin- warm & dry Psych- calm mood, pleasant, appropriate affect Results & Data Results & Data ([facility]) Vital Signs (Past 12 Hours) Vital Signs Temp Pulse Pulse Resp BP BP Pulse Ox 01/13/21 11:00 36.7 C 79 18 127/80 98 01/13/21 07:03 36.9 C 85 18 125/76 96 01/13/21 06:21 81 01/13/21 02:56 37.2 C 87 18 123/68 98 all noted and reviewed including below
[2021-01-13] MEDS ORDERED: POT PHOSPHATE MONOBASIC W/ SOD TAB PO SCH (13:00)
[2021-01-14] MEDS ORDERED: POTASSIUM CHLORIDE CRTAB 20 MEQ TABCR PO SCH (09:00)
[2021-01-21 04:42] LABS: Legionella Culture Source RIGHT LOWER LOBE
--- NOTE | 2021-01-25 18:37 | Discharge Summary ---
Date of Service January 25, 2021 Admission HPI Per Admitting Provider History obtained from ER provider, family, and records. Unable to obtain history from patient secondary to obtunded state. Medical history significant for anxiety/mood disorder, tremors, past tobacco abuse. Last confinement [facility] behavioral health unit for depression. Patient seen at [facility] on 3 occasions this week. First 2 visits (01/01 and 01/07) for anxiety, panic attacks, inability to sleep. Third visit at [facility] yesterday for depression and hallucinations. Patient admits to inhaling illicit substances (duster huffing). Patient not suicidal as per ER provider documentation. Patient subsequently admitted at the [facility]. Outpatient psychiatrist (Dr. Jeffery) recommended switching patient's Abilify to Seroquel inpatient as per records. Patient agitated and combative upon arriving at [facility] as per records. Subsequently given Ativan and Thorazine by medical staff. Patient later noted to have snoring respiration and decreased responsiveness. Subsequent emesis noted. Patient brought to the ER for evaluation. Patient subsequently intubated for combativeness and respiratory distress. Patient noted to have brown orotracheal secretions as per ED staff. IV Ceftriaxone and Flagyl given at the ER. Medical History as above Surgical History : None Family History : Heart disease Personal/Social history : Past tobacco abuse, no EtOH intake Admission Exam (Per Admitting) Constitutional GENERAL: Sedated, intubated SKIN: Normal color, warm HEENT: Haliimaile palpebral conjunctivae, no ptosis, dry buccal mucosa, ET in place NECK : Supple, no tenderness CHEST : Decreased breath sounds, occasional expiratory wheezes, no tenderness HEART : RRR, no obvious murmurs ABDOMEN: Some distention, nontender EXTREMITIES : No LE swelling/tenderness, no other conspicuous deformities noted NEUROLOGIC : Sedated, no facial asymmetry, gait and stance not assessed Discharge Data Consultations 01/09/21 03:25 ED Decision to Admit Stat 01/09/21 05:26 Consult Time Piece Repairer Routine 01/11/21 09:49 Consult Psychiatry Routine Procedures Performed CT ANGIOGRAM OF THE CHEST CLINICAL HISTORY: Respiratory failure. COMPARISON STUDY: Chest x-ray dated 01/10/2021. TECHNIQUE: Following the IV administration of 120 cc of Optiray 320, CT angiogram of the chest was performed from the upper abdomen to the thoracic inlet utilizing the pulmonary embolus protocol. Images are reviewed in the axial, sagittal, and coronal planes. 3-D MIPS images are created and assessed. IV contrast was administered without complication. A dose lowering technique was utilized adhering to the principles of ALARA. The examination is significant compromise by motion artifact, as well as streak artifact from the arms which could not be elevated above the chest. CT DOSE: 811.50 mGy.cm FINDINGS: Thyroid: Imaged portions of the thyroid gland are normal in size and att enuation. Thoracic aorta: The thoracic aorta is normal in caliber and demonstrates standard 3-vessel arch anatomy. No dissection is seen. Pulmonary vasculature: The pulmonary trunk is normal in caliber. There are no filling defects identified in main, lobar, or segmental pulmonary branches to suggest pulmonary embolus. Evaluation of the peripheral branches is compromised by streak and motion. Heart: A left internal jugular central venous catheter is in place. The heart is normal in size and without pericardial effusion. Lungs and pleural spaces: An endotracheal tube terminates above the misael. Secretions are noted in the trachea and left mainstem bronchus. Evaluation of the lung parenchyma is degraded by motion artifact. There is dense airspace consolidation throughout the lower lobes. Milder patchy consolidation is seen throughout the upper lobes and in the right middle lobe. There are small pleural effusions. No pneumothorax is seen. Mediastinum: There is no mediastinal lymphadenopathy. Sandrita: Clear. Axillae: There is no axillary lymphadenopathy. Upper abdomen: An enteric tube extends below the diaphragm and the stomach. Partially visualized upper abdominal viscera is within normal limits. Skeletal structures: No lytic or blastic bony lesions are seen. IMPRESSION: 1. Significantly streak and motion compromised examination. 2. There is no evidence of pulmonary embolus in the main, lobar, or segmental pulmonary arteries. Evaluation of the peripheral branches is compromised by streak and motion. 3. Extensive multifocal airspace consolidation is typical for pneu monia/aspiration pneumonitis. Clinical correlation will be required and radiographic follow-up to resolution pneumonitis. Clinical correlation will be required and radiographic follow-up to resolution 4. Small pleural effusions. ACT 112: Negative or not required by law. CT head/brain wo con CLINICAL HISTORY: 40 years-old Male with altered ms. Acutely altered mental status with drug overdose TECHNIQUE: Multiple axial CT images of the head were obtained without contrast. A dose lowering technique was utilized adhering to the principles of ALARA. CT DOSE: 691.05 mGy.cm COMPARISON: None. FINDINGS: No acute intracranial hemorrhage, midline shift, intracranial mass, hydrocephalus, territorial ischemia or abnormal extra-axial collection. The calvarium is intact. The paranasal sinuses, mastoid air cells, and middle ear cavities are clear. IMPRESSION: No acute intracranial abnormality. ACT 112: Negative or not required by law. Hospital Course (1) Respiratory failure: Patient is a 40-year-old male with history of anxiety/mood disorder, illicit drug abuse as per records and other medical problems presents from [facility] found to be unresponsive after receiving Ativan, Thorazine for agitation combative behavior while at psychiatric facility. 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 -CXR:No acute cardiopulmonary abnormality. -CTA:There is no evidence of pulmonary embolus in the main, lobar, or segmental pulmonary arteries. Evaluation of the peripheral branches is compromised by streak and motion. Extensive multifocal airspace consolidation is typical for pneumonia/aspiration pneumonitis. Clinical correlation will be required and radiographic follow-up to resolution pneumonitis. Clinical correlation will be required and radiographic follow-up to resolution Small pleural effusions. -Extubated on 01/11/21 Appreciated Psychiatry Input Appreciate Time Piece Repairer help Continue clindamycin Day 07/25 Needs follow-up with psychiatry upon discharge Encephalopathy resolved Weaned off of Precedex Will discontinue Solumedrol after a dose on 01/13/2101/13 respiratory status stable discharge on Augmentin BID x 5 days Acute Kidney Injury Cr:1.6>1.25> 0.99> 0.77 Received IV fluids Monitor renal function Avoid nephrotoxic agents as able 01/13 stable Hypokalemia Hypophosphatemia Replace electrolytes as needed Monitor 01/13 replace repeat K and Ph on ff up with PCP Anxiety/mood disorder Past tobacco abuse Resumed Ariprazole, Trazodone 01/[address] Rosenthal recommend to d/c home continue Abilify, Trazodone, Cogentin HOLD Effexor outpatient ff up with Teetee Alford, outpatient Rehab to be arranged by Psych service DVT Px: Heparin SQ Code Status Full Code plan of care discussed with patient in detail and at length all questions answered he is understanding, agreeable, comfortable with the plan of care
== END 2021-01-13 13:52 | disposition home or self-care (01) | DRG 917 ==
LOC: ED 22:23 → 1E 01-09 04:15 → SUATTDRO 01-09 04:26 → 2W 01-12 11:04